=== PATIENT | male | born 1950 | race Caucasian/White ===

== ENCOUNTER → 2016-11-06 | Day surgery (SDC) | payer OTHER ==
[2016-10-21 08:55] VITALS: BMI 28.0
[~2016-11-06] VITALS: Ht 182.9 cm; Wt 93.2 kg
[~2016-11-06] MED LIST: ASPCH81X PO; CHOL1000 PO; GLC500 PO; LIDOCAINE HCL 2% 2 ML VIAL (20MG/ML) ONE; PANT40TA PO; PROPOFOL IV EMULSION 10 MG/ML 20 ML VIAL IV ONE; SAW160CA5 PO; SILD50TA PO; SIMV80TA2 PO; SODIUM CHLORIDE 0.9% 500ML 500 ML IV ONE
[2016-11-06 11:37] VITALS: TEMP 36.5
[2016-11-06 11:45] VITALS: Ht 182.9 cm; Wt 93.2 kg
--- NOTE | 2016-11-06 12:09 | Endo History and Physical ---
History & Physical Date of Service: Nov 06, 2016. Chief Complaint: PERSONAL HX COLON CANCER Referring Physician: DR JACOBSON History of Present Illness 66 yo CM who presents for colonoscopy secondary to history of colon cancer. Past Surgical History Hx Cardiac Surgery: No Hx Internal Defibrillator: No Hx Pacemaker: No Hx Abdominal Surgery: Yes Hx of Implantable Prosthesis: No Hx Post-Op Nausea and Vomiting: No Hx Cancer Surgery: Yes (COLON RESECTION, MOHS ON HEAD) Hx Thoracic Surgery: No Hx Orthopedic: Yes (TRIGGER FINGER RELEASE (MULT)) Hx Urinary Tract Surgery: No Family History None Social History Smoking Status: Former Smoker Hx Substance Use: No Hx Alcohol Use: Yes (RARELY) Allergies Coded Allergies: No Known Allergies (Verified , `, 10/21/16) Current Medications Reported Home Medications Medications Dose Route/Sig Max Daily Dose Days Date Category Viagra (Sildenafil Citrate) 50 Mg Tab 1 Tab PO UD 11/06/16 Reported Aspirin Chewable (Aspirin) 81 Mg Chew 81 Mg PO QAM 10/21/16 Reported Vitamin D3 (Cholecalciferol) 1,000 Unit Tab 1 Tab PO BID 90 10/21/16 Reported Saw [place] (Saw [place] ([place]ren[place] Repens)) 160 Mg Cap 1 Tab PO BID 04/17/16 Reported Glucophage * (Metformin HCl) 1,000 Mg Tab 1,000 Mg PO BIDM 10/12/10 Reported Protonix (Pantoprazole Sodium) 40 Mg Tab 40 Mg PO Q2D 09/06/08 Reported Zocor (Simvastatin) 80 Mg Tab 80 Mg PO QPM 09/06/08 Reported Vital Signs Weight (Kilograms): 93.18 Height (Feet): 6 Height (Inches): 0 Date Time Temp Pulse Resp B/P Pulse Ox O2 Delivery O2 Flow Rate FiO2 11/06/16 11:37 36.5 62 16 177/88 99 Room Air Physical Exam General Appearance: WD/WN, no apparent distress Respiratory/Chest: Auscultation: breath sounds normal Cardiovascular: Heart Auscultation: RRR Abdomen: Bowel Sounds: normal Inspection & Palpation: soft, non-distended, no tenderness, guarding & rebound Assessment and Plan Assessment: 66 yo CM who presents for colonoscopy secondary to history of colon cancer. Plan: Proceed with colonoscopy.
--- NOTE | 2016-11-06 12:36 | GI REPORT ---
Procedure Date: 11/06/2016 12:13 PM Procedure: Colonoscopy Indications: High risk colon cancer surveillance: Personal history of colon cancer Medicines: Monitored Anesthesia Care Complications: No immediate complications. Estimated Blood Loss: Estimated blood loss: none. Procedure: Pre-Anesthesia Assessment: - Prior to the procedure, a History and Physical was performed, and patient medications and allergies were reviewed. The patient's tolerance of previous anesthesia was also reviewed. The risks and benefits of the procedure and the sedation options and risks were discussed with the patient. All questions were answered, and informed consent was obtained. Prior Anticoagulants: The patient has taken aspirin, last dose was 9 days prior to procedure. ASA Grade Assessment: II - A patient with mild systemic disease. After reviewing the risks and benefits, the patient was deemed in satisfactory condition to undergo the procedure. After I obtained informed consent, the scope was passed under direct vision. Throughout the procedure, the patient's blood pressure, pulse, and oxygen saturations were monitored continuously. The Scope was introduced through the anus and advanced to the terminal ileum. The colonoscopy was performed without difficulty. The patient tolerated the procedure well. The quality of the bowel preparation was good. The terminal ileum, ileocecal valve, appendiceal orifice, and rectum were photographed. Findings: Three sessile polyps were found in the ascending colon. The polyps were 5 to 8 mm in size. These polyps were removed with a hot snare. Resection and retrieval were complete. There was evidence of a prior end-to-side colo-colonic anastomosis in the descending colon. This was patent and was characterized by healthy appearing mucosa. Non-bleeding internal hemorrhoids were found during retroflexion. The hemorrhoids were small. Impression: - Three 5 to 8 mm polyps in the ascending colon, removed with a hot snare. Resected and retrieved. - Patent end-to-side colo-colonic anastomosis, characterized by healthy appearing mucosa. - Non-bleeding internal hemorrhoids. Recommendation: - Resume previous diet. - Continue present medications. - Repeat colonoscopy for surveillance based on pathology results. - Return to primary care physician as previously scheduled. Sid Watts DO 11/06/2016 12:35:45 PM This report has been signed electronically. Note Initiated On: 11/06/2016 12:13 PM I attest to the content of the Intraoperative Record and orders documented therein, exceptions below
--- NOTE | 2016-11-06 12:37 | Discharge Instructions ---
Endoscopy Patient Instructions Date / Procedure(s) Performed Nov 06, 2016. Colonoscopy Allergy Information Coded Allergies: No Known Allergies (Verified , `, 10/21/16) Discharge Date / Findings Nov 06, 2016. Colon polyps Left sided anastomosis Internal hemorrhoids Medication Instructions Stopped Medication(s): ASPIRIN LAST DOSE 10/28/16 METFORMIN LAST DOSE 11/03/16 PROTONIX LAST DOSE 11/03/16 OK to resume all medications today as prescribed. Reported Home Medications Medications Dose Route/Sig Max Daily Dose Days Date Category Viagra (Sildenafil Citrate) 50 Mg Tab 1 Tab PO UD 11/06/16 Reported Aspirin Chewable (Aspirin) 81 Mg Chew 81 Mg PO QAM 10/21/16 Reported Vitamin D3 (Cholecalciferol) 1,000 Unit Tab 1 Tab PO BID 90 10/21/16 Reported Saw [place] (Saw [place] (Serenoa Repens)) 160 Mg Cap 1 Tab PO BID 04/17/16 Reported Glucophage * (Metformin HCl) 1,000 Mg Tab 1,000 Mg PO BIDM 10/12/10 Reported Protonix (Pantoprazole Sodium) 40 Mg Tab 40 Mg PO Q2D 09/06/08 Reported Zocor (Simvastatin) 80 Mg Tab 80 Mg PO QPM 09/06/08 Reported Provider Instructions Activity Restrictions - No exercising or heavy lifting for 24 hours. - Do not drink alcohol the day of the procedure. - Do not drive a car or operate machinery until the day after the procedure. - Do not make any important decisions or sign important papers in 24 hours after the procedure. Following Day: - Return to full activity which may include returning to work/school. Diet Start your diet with liquids and light foods (jello, soup, juice, toast). Then eat your usual diet if not nauseated. Treatment For Common After Affects For mild abdominal pain, bloating, or excessive gas: - Rest - Eat lightly - Lie on right side Follow-Up Information Follow-up with DR JACOBSON as scheduled Anesthesia Information What You Should Know You have had a procedure that required some medicine to reduce anxiety and discomfort. This treatment is called moderate sedation. After receiving the treatment, you may be sleepy, but you will be able to breathe on your own. The effects of the treatment may last for several hours. Follow these instructions along with Activity/Diet recommendations noted above: * Do NOT do anything where dizziness or clumsiness would be dangerous. * Rest quietly at home today, then you can be up and about tomorrow. * Have a responsible person stay with you the rest of today. * You may have had an I.V. today. If so, you may take the dressing off later today. Recommendations Call your doctor if: * Trouble breathing * Continuous vomiting for more than 24 hours * Temperature above 101 degrees * Severe abdominal pain or bloating * Pain not relieved by pain medicine ordered * There is increased drainage or redness from any incision * A large amount of rectal bleeding greater than 2-3 tablespoons. (If you had a polyp/s removed or have hemorrhoids, a small amount of blood - from the rectum is to be expected.) * You have any unanswered questions or concerns. IN THE EVENT OF A SERIOUS EMERGENCY, GO TO THE NEAREST EMERGENCY ROOM Your discharge instructions were prepared by provider Sid Watts. Patient Instructions Signature Page Demetri Hernandes Patient (or Guardian) Signature/Date: I have read and understand the instructions given to me by my caregivers. Caregiver/RN/Doctor Signature/Date: The above-named patient and/or guardian has received patient instructions on this date. + Original Patient Signature Page (only) stays with chart. Please make copy for patient.
[2016-11-06 13:01] VITALS: BP 141/74; PULSE 58; O2SAT 97
--- NOTE | 2016-11-06 13:48 | Anesthesiology Progress Note ---
Anesthesia Post Op Note Date & Time Nov 06, 2016 at 13:48 Vital Signs Pain Intensity: 0 Vital Signs Past 12 Hours Date Time Temp Pulse Resp B/P Pulse Ox O2 Delivery O2 Flow Rate FiO2 11/06/16 13:01 58 20 141/74 97 Room Air 11/06/16 12:46 71 20 142/74 95 Room Air 11/06/16 12:31 54 16 110/57 98 Room Air 11/06/16 11:37 36.5 62 16 177/88 99 Room Air Notes Mental Status: alert / awake / arousable, participated in evaluation Pt Amnestic to Procedure: Yes Nausea / Vomiting: adequately controlled Pain: adequately controlled Airway Patency, RR, SpO2: stable & adequate BP & HR: stable & adequate Hydration State: stable & adequate Anesthetic Complications: no major complications apparent
== END | disposition home or self-care (01) ==
LOC: C.GI 11:23
PROVIDERS: ATTEND Internal Medicine
DX: Z12.11 Encounter for screening for malignant neoplasm of colon (principal); D12.2 Benign neoplasm of ascending colon; Z85.038 Personal history of other malignant neoplasm of large intestine; Z98.0 Intestinal bypass and anastomosis status; Z90.49 Acquired absence of other specified parts of digestive tract; K64.8 Other hemorrhoids; Z87.891 Personal history of nicotine dependence; Z79.82 Long term (current) use of aspirin

== ENCOUNTER → 2017-01-15 | Outpatient (CLI) | payer OTHER ==
[~2017-01-15] MED LIST changes: -LIDOCAINE HCL 2% 2 ML VIAL (20MG/ML) ONE; -PROPOFOL IV EMULSION 10 MG/ML 20 ML VIAL IV ONE; -SODIUM CHLORIDE 0.9% 500ML 500 ML IV ONE
[2017-01-15 10:50] LABS: BASO % 0.3 %; BASO ABS # 0.02 K/uL (0-0.2); COMPLETE YES; EOS % 1.4 %; HEMATOCRIT 40.3 % (42-52); IG% 0.2 %; LYMPH % 18.3 %; LYMPH ABS # 1.21 K/uL (1.2-3.4); MEAN CELL VOLUME 84.3 fL (80-100); MEAN CORPUSCULAR HEMOGLOBIN 27.2 pg (25-34); MEAN CORPUSCULAR HGB CONC 32.3 g/dl (32-36); MONO % 9.1 %; NEUT % 70.7 %; PLATELET COUNT 294 K/uL (130-400); RED BLOOD COUNT 4.78 M/uL (4.7-6.1)
[2017-01-15 11:03] LABS: ALT/SGPT 35 U/L (12-78); AST/SGOT 23 U/L (15-37); BLOOD UREA NITROGEN 13 mg/dl (7-18); BUN/CREATININE RATIO 11.7 (10-20); CARBON DIOXIDE 26 mmol/L (21-32); CHLORIDE 105 mmol/L (98-107); CHOLESTEROL 149 mg/dl (0-200); GLUCOSE 116 mg/dl (70-99); POTASSIUM 3.9 mmol/L (3.5-5.1); SODIUM 139 mmol/L (136-145); TRIGLYCERIDES 89 mg/dl (0-150); VERY LOW DENSITY LIPOPROT CALC 18 mg/dl
[2017-01-15 11:09] LABS: ALKALINE PHOSPHATASE 67 U/L (45-117); CHOLESTEROL/HDL RATIO 3.2; FERRITIN 57.4 ng/ml (8.0-388.0); HDL CHOLESTEROL 47 mg/dl; LDL CHOLESTEROL CALCULATED 84 mg/dl; TOTAL IRON BINDING CAPACITY 386 mcg/dl (250-450)
[2017-01-15 11:24] LABS: ESTIMATED AVERAGE GLUCOSE 137 mg/dl; HA1C FLAG Normal (Normal)
[2017-01-15 11:31] LABS: CALCIUM 9.5 mg/dl (8.5-10.1)
[2017-01-15 11:41] LABS: RATIO 70.4 mcg/mg (0-30.0)
== END | disposition home or self-care (01) ==
LOC: C.LABBC 08:49
PROVIDERS: ATTEND Internal Medicine
DX: E11.9 Type 2 diabetes mellitus without complications (principal); D64.9 Anemia, unspecified; E78.5 Hyperlipidemia, unspecified; Z85.038 Personal history of other malignant neoplasm of large intestine

== ENCOUNTER → 2017-01-22 | Outpatient (CLI) | payer OTHER ==
[2017-01-22 12:15] LABS: URINE APPEARANCE CLEAR (CLEAR); URINE BILIRUBIN NEG (NEG); URINE COLOR YELLOW; URINE NITRITE NEG (NEG); URINE SPECIFIC GRAVITY 1.016 (1.000-1.030); UROBILINOGEN NEG (NEG)
[2017-01-22 12:19] LABS: MANUAL MICROSCOPIC REQUIRED? NO; REVIEW REQ? NO
== END | disposition home or self-care (01) ==
LOC: C.LAB1850 11:18
PROVIDERS: ATTEND Internal Medicine
DX: Z00.00 Encounter for general adult medical examination without abnormal findings (principal); Z11.59 Encounter for screening for other viral diseases; R35.0 Frequency of micturition

== ENCOUNTER → 2017-02-12 | Outpatient (CLI) | payer OTHER ==
[2017-02-12 13:58] LABS: URINE APPEARANCE CLEAR (CLEAR); URINE BILIRUBIN NEG (NEG); URINE COLOR DK YELLOW; URINE EPITHELIAL CELL AUTO 0-5 /lpf (0-5); URINE NITRITE POS (NEG); URINE PH 6.5 (4.5-7.5); URINE SPECIFIC GRAVITY 1.026 (1.000-1.030); UROBILINOGEN POS (NEG)
[2017-02-12 14:05] LABS: MANUAL MICROSCOPIC REQUIRED? NO; REVIEW REQ? NO
== END | disposition home or self-care (01) ==
LOC: C.LABBC 11:41
PROVIDERS: ATTEND Internal Medicine
DX: R35.0 Frequency of micturition (principal)

== ENCOUNTER → 2017-03-05 | Outpatient (CLI) | payer OTHER ==
[2017-03-05 15:02] LABS: URINE APPEARANCE TURBID (CLEAR); URINE BILIRUBIN NEG (NEG); URINE COLOR DK YELLOW; URINE NITRITE NEG (NEG); URINE SPECIFIC GRAVITY 1.026 (1.000-1.030); UROBILINOGEN NEG (NEG)
[2017-03-05 15:06] LABS: MANUAL MICROSCOPIC REQUIRED? NO; REVIEW REQ? NO
== END | disposition home or self-care (01) ==
LOC: C.LABBC 09:58
PROVIDERS: ATTEND Internal Medicine
DX: R35.0 Frequency of micturition (principal)

== ENCOUNTER → 2017-05-22 | Outpatient (CLI) | payer OTHER ==
[2017-05-22 10:50] LABS: BASO % 0.7 %; BASO ABS # 0.04 K/uL (0-0.2); COMPLETE YES; EOS % 1.8 %; HEMATOCRIT 40.4 % (42-52); LYMPH % 25.6 %; LYMPH ABS # 1.43 K/uL (1.2-3.4); MEAN CELL VOLUME 83.6 fL (80-100); MEAN CORPUSCULAR HEMOGLOBIN 28.2 pg (25-34); MEAN CORPUSCULAR HGB CONC 33.7 g/dl (32-36); MEAN PLATELET VOLUME 10.2 fL (7.4-10.4); MONO % 7.2 %; NEUT % 64.7 %; PLATELET COUNT 256 K/uL (130-400); RED BLOOD COUNT 4.83 M/uL (4.7-6.1); WHITE BLOOD COUNT 5.58 K/uL (4.8-10.8)
[2017-05-22 11:11] LABS: ESTIMATED AVERAGE GLUCOSE 131 mg/dl; HA1C FLAG Normal (Normal)
[2017-05-22 11:22] LABS: BLOOD UREA NITROGEN 12 mg/dl (7-18); CALCIUM 9.4 mg/dl (8.5-10.1); CARBON DIOXIDE 26 mmol/L (21-32); CHLORIDE 107 mmol/L (98-107); GLUCOSE 97 mg/dl (70-99); SODIUM 140 mmol/L (136-145)
[2017-05-22 11:27] LABS: RATIO 4.1 mcg/mg (0-30.0)
[2017-05-22 11:27] LABS: TOTAL IRON BINDING CAPACITY 478 mcg/dl (250-450)
== END | disposition home or self-care (01) ==
LOC: C.LABBC 08:45
PROVIDERS: ATTEND Internal Medicine
DX: E11.9 Type 2 diabetes mellitus without complications (principal); D64.9 Anemia, unspecified

== ENCOUNTER → 2017-07-23 | Outpatient (CLI) | payer OTHER ==
[2017-07-23 10:54] LABS: BASO % 0.4 %; BASO ABS # 0.03 K/uL (0-0.2); COMPLETE YES; EOS % 1.2 %; HEMATOCRIT 41.3 % (42-52); LYMPH % 20.8 %; LYMPH ABS # 1.39 K/uL (1.2-3.4); MEAN CELL VOLUME 86.4 fL (80-100); MEAN CORPUSCULAR HEMOGLOBIN 28.5 pg (25-34); MEAN CORPUSCULAR HGB CONC 32.9 g/dl (32-36); MEAN PLATELET VOLUME 10.2 fL (7.4-10.4); MONO % 6.7 %; NEUT % 70.9 %; PLATELET COUNT 230 K/uL (130-400); RED BLOOD COUNT 4.78 M/uL (4.7-6.1); WHITE BLOOD COUNT 6.69 K/uL (4.8-10.8)
[2017-07-23 11:27] LABS: BLOOD UREA NITROGEN 15 mg/dl (7-18); BUN/CREATININE RATIO 13.8 (10-20); CALCIUM 9.2 mg/dl (8.5-10.1); CARBON DIOXIDE 28 mmol/L (21-32); CHLORIDE 105 mmol/L (98-107); CREATININE 1.09 mg/dl (0.60-1.40); GLUCOSE 94 mg/dl (70-99); SODIUM 138 mmol/L (136-145)
[2017-07-23 11:32] LABS: FERRITIN 12.6 ng/ml (8.0-388.0); TOTAL IRON BINDING CAPACITY 421 mcg/dl (250-450)
== END | disposition home or self-care (01) ==
LOC: C.LABBC 08:53
PROVIDERS: ATTEND Internal Medicine
DX: D64.9 Anemia, unspecified (principal); I10 Essential (primary) hypertension; N40.0 Benign prostatic hyperplasia without lower urinary tract symptoms

== ENCOUNTER → 2018-01-15 | Outpatient (CLI) | payer OTHER ==
[2018-01-15 11:26] LABS: ALT/SGPT 22 U/L (12-78); AST/SGOT 15 U/L (15-37); BLOOD UREA NITROGEN 16 mg/dl (7-18); CALCIUM 9.2 mg/dl (8.5-10.1); CARBON DIOXIDE 28 mmol/L (21-32); CHOLESTEROL 136 mg/dl (0-200); CREATININE 1.19 mg/dl (0.60-1.40); GLUCOSE 103 mg/dl (70-99); LDL CHOLESTEROL CALCULATED 66 mg/dl; POTASSIUM 4.2 mmol/L (3.5-5.1); SODIUM 140 mmol/L (136-145)
[2018-01-15 12:15] LABS: HEMOGLOBIN A1C 5.9 % (4.5-5.6)
== END | disposition home or self-care (01) ==
LOC: C.LABBC 08:46
PROVIDERS: ATTEND Internal Medicine
DX: E11.9 Type 2 diabetes mellitus without complications (principal); E78.5 Hyperlipidemia, unspecified; R97.20 Elevated prostate specific antigen [PSA]; I10 Essential (primary) hypertension; E55.9 Vitamin D deficiency, unspecified

== ENCOUNTER 2018-12-03 15:44 | Inpatient (IN) ==
[2018-12-03] MEDS ORDERED: ATROPINE SULFATE 0.1 MG/ML 10ML SYR IV ONE (16:06)
[2018-12-03] MEDS ORDERED: ATROPINE SULFATE 0.1 MG/ML 10ML SYR IV STA (16:08)
[2018-12-03] MEDS ORDERED: SODIUM CHLORIDE 0.9% 500 ML IV SCH (16:15)
[2018-12-03 16:17] LABS: Basophils # (auto) 0.03 K/uL (0-0.2); Basophils % (auto) 0.5 %; Eosinophils # (auto) 0.09 K/uL (0-0.5); Eosinophils % (auto) 1.4 %; Hematocrit (blood only) 39.8 % (42-52); Hemoglobin 13.3 g/dL (14.0-18.0); Immature Granulocytes # (auto) 0.02 K/uL (0.00-0.02); Immature Granulocytes % (auto) 0.3 %; Lymphocytes # (auto) 1.27 K/uL (1.2-3.4); Lymphocytes % (auto) 20.2 %; Mean Corpuscular Hgb Conc 33.4 g/dL (32-36); Mean Corpuscular Volume 90.5 fL (80-100); Mean Platelet Volume 10.8 fL (7.4-10.4); Monocytes # (auto) 0.53 K/uL (0.11-0.59); Monocytes % (auto) 8.4 %; Neutrophils # (auto) 4.35 K/uL (1.4-6.5); Neutrophils % (auto) 69.2 %; Platelet Count 208 K/uL (130-400); RDW Coefficient of Variation 13.3 % (11.5-14.5); RDW Standard Deviation 43.7 fL (36.4-46.3); White Blood Count 6.29 K/uL (4.8-10.8)
[2018-12-03 16:19] LABS: iSTAT Creatinine 1.4 mg/dl (0.6-1.3); iSTAT Hemoglobin 12.9 g/dl (14.0-18.0); iSTAT Ionized Calcium 1.16 mmol/l (1.12-1.32); iSTAT Potassium 4.3 mEq/L (3.3-5.0)
--- NOTE | 2018-12-03 16:20 | XRay Report ---
XR chest 1V portable CLINICAL HISTORY: Dyspnea COMPARISON STUDY: 11/08/2010 FINDINGS: The heart is mildly enlarged. There is radiographic evidence of emphysema. There is slight elevation of the interstitium raising the possibility of mild pulmonary vascular congestion.[ There i s no focal pulmonary consolidation. There are no pleural effusions. IMPRESSION: Cardiomegaly and suspected mild pulmonary vascular congestion. No evidence of focal pulmo nary consolidation. Electronically signed by: Quintin Lawrence M.D. 12/03/2018 4:18 PM
[2018-12-03 16:28] LABS: Partial Thromboplastin Ratio 0.9; Partial Thromboplastin Time 24.7 Seconds (21.0-31.0); Prothrombin Time 10.5 Seconds (9.0-12.0)
[2018-12-03 16:34] LABS: Alanine Aminotransferase 31 U/L (12-78); Albumin Level 3.8 gm/dl (3.4-5.0); Aspartate Aminotransferase 16 U/L (15-37); BUN Creatinine Ratio 12.3 (10-20); Blood Urea Nitrogen 18 mg/dl (7-18); Carbon Dioxide 26 mmol/L (21-32); Chloride 111 mmol/L (98-107); Creatinine Clr Calc Pharmacy 59.6 ml/min; Est GFR (African American) 55.7; Glucose 100 mg/dl (70-99); Magnesium 2.3 mg/dl (1.8-2.4); Potassium 4.3 mmol/L (3.5-5.1); Sodium 142 mmol/L (136-145)
[2018-12-03 16:38] LABS: Albumin Globulin Ratio 1.3 (0.9-2); Alkaline Phosphatase 54 U/L (45-117); Globulin 2.8 gm/dl (2.5-4.0); Phosphorus 3.4 mg/dl (2.5-4.9); Total Protein 6.6 gm/dl (6.4-8.2); Troponin I < 0.015 ng/ml (0-0.045)
[2018-12-03 16:58] LABS: Base Excess VBG 0.3 mEq/L; HCO3 VBG 24 mmol/L; Oxygen Saturation VBG < 60.0 %; PCO2 VBG 37 mmHg (38-50); PO2 VBG 28 mmHg; pH VBG 7.44 (7.36-7.41)
[2018-12-03] MEDS ORDERED: MAGNESIUM SULFATE / D5W 1 GM/100 ML BAG IV SCH (17:00)
[2018-12-03 17:34] LABS: Lyme Ab IgG w/WB Rflx Negative (Negative); Lyme Ab IgM w/WB Rflx Negative (Negative)
[2018-12-03] MEDS ORDERED: ALUMINUM/MAGNESIUM SUSP 30 ML UDC PO PRN (17:42)
[2018-12-03] MEDS ORDERED: ONDANSETRON INJ 2 MG/ML 2 ML VIAL IV PRN (17:42)
--- NOTE | 2018-12-03 17:54 | History & Physical Report ---
Date of Service December 03, 2018 Assessment & Plan (1) Symptomatic bradycardia: Patient appears to have a [place] 2 were irregular heartbeat is not conducted P wave. The patient is asymptomatic at rest at this time preserving his blood pressure. His heart rates in the 30s. He is had a very negative emergency department workup. I spoke to cardiology her considering pacemaker placement. Interesting bit of information is his takes a beta-karime they feel fairly confident that did not mix of the medications but this is also a possibility but this would likely remedy itself by the morning. Keep the pacer pads on and use saline overnight to preserve his blood pressure. TSH and Lyme are negative or normal, all electrolytes are within normal limits (2) HTN (hypertension): We will hold the patient's losartan at this point in time (3) Erectile dysfunction: Patient does take as needed sildenafil with does not taken any recently History of Present Illness Primary Care Provider: Manuel Menjivar MD Patient presents with few days a week history of dyspnea on exertion. His also notes is been increasingly having memory issues over the last few weeks. He is found to be in what appears to be a second-degree heart block type II or every other heartbeat is nonconducted P wave. Patient otherwise has a very benign examination and laboratory evaluation including negative Lyme disease normal TSH negative troponin. He carries a diagnosis of diabetes. He takes metformin and his A1c is 5.9. He has no significant electrolyte abnormalities. Patient did transiently respond to atropine in the ER but currently his heart rates around 30-40 and his blood pressure is stable I personally spoke to Dr. Delgado education faculty member cardiology and there is a strong consideration for pacemaker placement in the morning of 12/04 Allergies Allergy/AdvReac Type Severity Reaction Status Date / Time No Known Allergies Allergy Unknown ` Verified 12/03/18 16:13 Home Medications Home Medications Medication Instructions Recorded Confirmed Type aspirin 81 mg PO DAILY 12/03/18 12/03/18 History cholecalciferol (vitamin D3) 1,000 unit PO DAILY 12/03/18 12/03/18 History [Vitamin D3] cyanocobalamin (vitamin B-12) 1 tab PO DAILY 12/03/18 12/03/18 History [Vitamin B-12] ferrous sulfate [iron] 1 tab PO DAILY 12/03/18 12/03/18 History losartan 50 mg PO DAILY 12/03/18 12/03/18 History metformin 1,000 mg PO BID 12/03/18 12/03/18 History saw [place] 1 tab PO DAILY 12/03/18 12/03/18 History simvastatin 80 mg PO DAILY 12/03/18 12/03/18 History Past Med/Surg History Medical History Colon cancer (Resolved) Heart murmur Surgical History History of partial colectomy Social History Preferred Language: Portuguese marital status: Current Living Situation: Spouse Feels Safe at Home: Yes Smoking Status: Never smoker Hx Alcohol Use: No Review of Systems ROS: well nourished well developed. No double vision blurry vision No problems with speech or swallowing Patient may be able to feel some strong heartbeats or palpitations, but denies having any chest pain or pressure No Wheezing relates dyspnea on exertion No abdominal pain nausea vomiting diarrhea has had a reduced appetite and increased weight gain No burning urine urine frequency or changes in color No focal joint pain or muscle pain No skin rashes or oral lesions No unusual bruising or bleeding No focused back pain or numbness or loss of strength states he has had more challenges with memory of late Physical Exam Vital Signs (Past 24 Hours): Last Vital Signs Temp 36.7 C 12/03/18 15:49 Pulse 41 L 12/03/18 16:30 Resp 17 12/03/18 16:30 BP 187/71 H 12/03/18 16:16 Pulse Ox 93 12/03/18 16:30 The patient appeared well nourished and normally developed. Vital signs as documented. Extremely low heart rate but preserved blood pressure Head exam is unremarkable. normocephalic, atraumatic Neck is without jugular venous distension, thyromegaly, or lymphademopathy Lungs are clear to auscultation and percussion. Cardiac exam reveals extreme bradycardia first and second heart sounds normal. Abdominal exam reveals normal bowel sounds, no masses, no organomegaly Extremities are mildly edematous and both pedal pulses are present Neurologic exam is A&Ox3, no focal deficits, strength is equal bilateral Psychologically seems neither anxious or depressed Skin is warm Dry without bruises or lesions Results & Data ECG Additional Comments: EKG shows sinus bradycardia likely Mobitz 2 heart block
[2018-12-03] MEDS: SODIUM CHLORIDE 0.9% 1000ML 1,000 ML IV SCH (19:33)
--- NOTE | 2018-12-04 00:51 | Emergency Department Note ---
Entered by Sarah Clayton acting as a scribe for History of Present Illness General Chief complaint: Arrhythmia/Palpitations Stated complaint: IRREGULAR HEARTBEAT Time Seen by Provider: 12/03/18 16:01 Source: patient Mode of arrival: ambulatory Limitations: no limitations History of Present Illness Provider complaint: shortness of breath Onset (ago): week(s) (several) Location: chest Pain Consistency: + other (worsening) Maximum Pain Intensity: 0 Quality: + other (YUEN) Relieved By: + rest Exacerbated By: + other (walking) Associated symptoms: + denies other symptoms (urinary, abn BM, leg swelling); no chest pain The patient is a 68 year old male with a past medical history of HLD, diabetes and colon cancer who presents to the Emergency Room with complaints of a worsening shortness of breath that began several weeks ago. The patent reports that his symptoms are worsened when walking but relieved with rest. He denies any leg swelling, chest pain or urinary symptoms and notes he has had normal bowel movements. He also denies any recent surgeries or any alcohol or tobacco use. He notes that he has had a 15 pound weight gain over the last 6 months. He denies any allergies to medications. He also reports that he was evaluated by his PCP earlier today and referred to the ER secondary to a low pulse and abnormal EKG results. He denies any cardiac history. Per , the patient is on a daily low-dose aspirin. Home Medications Home Medications Medication Instructions Recorded Confirmed Type aspirin 81 mg PO DAILY 12/03/18 12/03/18 History cholecalciferol (vitamin D3) 1,000 unit PO DAILY 12/03/18 12/03/18 History [Vitamin D3] cyanocobalamin (vitamin B-12) 1 tab PO DAILY 12/03/18 12/03/18 History [Vitamin B-12] ferrous sulfate [iron] 1 tab PO DAILY 12/03/18 12/03/18 History losartan 50 mg PO DAILY 12/03/18 12/03/18 History metformin 1,000 mg PO BID 12/03/18 12/03/18 History saw palmetto 1 tab PO DAILY 12/03/18 12/03/18 History simvastatin 80 mg PO DAILY 12/03/18 12/03/18 History Allergies Allergy/AdvReac Type Severity Reaction Status Date / Time No Known Allergies Allergy Unknown ` Verified 12/03/18 16:13 Past Med/Surg History Medical History Colon cancer (Resolved) Heart murmur Surgical History History of partial colectomy Social History Preferred Language: [place] Communication Ability: Effective Art Installer Required: No Beliefs That Will Affect Care: None marital status: Current Living Situation: Spouse Other Information That Helps Us Care for You: No Feels Safe at Home: Yes Safety Concerns: Feels Safe At This Time Smoking Status: Unknown if ever smoked Hx Alcohol Use: No Review of Systems See HPI for pertinent positives & negatives. and A total of 10 systems reviewed and were otherwise negative Physical Exam Vital Signs Vital Signs - 24 hr 12/03/18 15:49 12/03/18 16:00 12/03/18 16:02 Temperature 36.7 C Temperature Source Oral Sepsis Recent Fever Within 48 Hours No Sepsis New/Unexplained Change in Mental Status No Sepsis Action Taken by Nursing No Action Required Pulse Rate 37 L 37 L Pulse Rate [Left Brachial] Pulse Rate [Left Finger] Pulse Rate from SpO2 Sensor Pulse Rhythm [Left Brachial] Pulse Strength [Left Brachial] Respiratory Rate 17 15 Respiratory Effort / Characteristics Respiratory Depth Respiratory Pattern Blood Pressure 194/73 H Blood Pressure [Right Arm] Blood Pressure Mean 113 Blood Pressure Mean [Right Arm] Blood Pressure Position Lying Blood Pressure Position [Right Arm] Pulse Oximetry 97 95 Oxygen Delivery Method Room Air 12/03/18 16:03 12/03/18 16:05 12/03/18 16:10 Temperature Temperature Source Sepsis Recent Fever Within 48 Hours Sepsis New/Unexplained Change in Mental Status Sepsis Action Taken by Nursing Pulse Rate 38 L 53 L Pulse Rate [Left Brachial] Pulse Rate [Left Finger] Pulse Rate from SpO2 Sensor 38 L 63 Pulse Rhythm [Left Brachial] Pulse Strength [Left Brachial] Respiratory Rate 17 19 Respiratory Effort / Characteristics Respiratory Depth Normal Respiratory Pattern Blood Pressure 179/69 H Blood Pressure [Right Arm] Blood Pressure Mean 105 Blood Pressure Mean [Right Arm] Blood Pressure Position Blood Pressure Position [Right Arm] Pulse Oximetry 95 97 95 Oxygen Delivery Method Room Air 12/03/18 16:16 12/03/18 16:20 12/03/18 16:30 Temperature Temperature Source Sepsis Recent Fever Within 48 Hours Sepsis New/Unexplained Change in Mental Status Sepsis Action Taken by Nursing Pulse Rate 41 L 41 L 41 L Pulse Rate [Left Brachial] Pulse Rate [Left Finger] Pulse Rate from SpO2 Sensor 41 L 42 L 42 L Pulse Rhythm [Left Brachial] Pulse Strength [Left Brachial] Respiratory Rate 15 20 17 Respiratory Effort / Characteristics Respiratory Depth Respiratory Pattern Blood Pressure 187/71 H Blood Pressure [Right Arm] Blood Pressure Mean 109 Blood Pressure Mean [Right Arm] Blood Pressure Position Blood Pressure Position [Right Arm] Pulse Oximetry 95 97 93 Oxygen Delivery Method 12/03/18 16:34 12/03/18 16:40 12/03/18 16:45 Temperature Temperature Source Sepsis Recent Fever Within 48 Hours Sepsis New/Unexplained Change in Mental Status Sepsis Action Taken by Nursing Pulse Rate 41 L 38 L 43 L Pulse Rate [Left Brachial] Pulse Rate [Left Finger] Pulse Rate from SpO2 Sensor 44 L 39 L 38 L Pulse Rhythm [Left Brachial] Pulse Strength [Left Brachial] Respiratory Rate 19 18 18 Respiratory Effort / Characteristics Respiratory Depth Respiratory Pattern Blood Pressure 157/67 H 151/69 H Blood Pressure [Right Arm] Blood Pressure Mean 97 96 Blood Pressure Mean [Right Arm] Blood Pressure Position Blood Pressure Position [Right Arm] Pulse Oximetry 95 95 Oxygen Delivery Method 12/03/18 16:50 12/03/18 17:00 12/03/18 17:01 Temperature Temperature Source Sepsis Recent Fever Within 48 Hours Sepsis New/Unexplained Change in Mental Status Sepsis Action Taken by Nursing Pulse Rate 41 L 36 L 36 L Pulse Rate [Left Brachial] Pulse Rate [Left Finger] Pulse Rate from SpO2 Sensor 39 L 36 L 39 L Pulse Rhythm [Left Brachial] Pulse Strength [Left Brachial] Respiratory Rate 21 21 21 Respiratory Effort / Characteristics Respiratory Depth Respiratory Pattern Blood Pressure 161/72 H Blood Pressure [Right Arm] Blood Pressure Mean 101 Blood Pressure Mean [Right Arm] Blood Pressure Position Blood Pressure Position [Right Arm] Pulse Oximetry 95 94 90 Oxygen Delivery Method 12/03/18 17:10 12/03/18 17:16 12/03/18 17:20 Temperature Temperature Source Sepsis Recent Fever Within 48 Hours Sepsis New/Unexplained Change in Mental Status Sepsis Action Taken by Nursing Pulse Rate 38 L 36 L 38 L Pulse Rate [Left Brachial] Pulse Rate [Left Finger] Pulse Rate from SpO2 Sensor 38 L 36 L 36 L Pulse Rhythm [Left Brachial] Pulse Strength [Left Brachial] Respiratory Rate 21 19 15 Respiratory Effort / Characteristics Respiratory Depth Respiratory Pattern Blood Pressure 157/71 H Blood Pressure [Right Arm] Blood Pressure Mean 99 Blood Pressure Mean [Right Arm] Blood Pressure Position Blood Pressure Position [Right Arm] Pulse Oximetry 96 96 97 Oxygen Delivery Method 12/03/18 17:30 12/03/18 17:31 12/03/18 17:40 Temperature Temperature Source Sepsis Recent Fever Within 48 Hours Sepsis New/Unexplained Change in Mental Status Sepsis Action Taken by Nursing Pulse Rate 37 L 37 L Pulse Rate [Left Brachial] Pulse Rate [Left Finger] Pulse Rate from SpO2 Sensor 37 L 37 L 36 L Pulse Rhythm [Left Brachial] Pulse Strength [Left Brachial] Respiratory Rate 17 20 20 Respiratory Effort / Characteristics Respiratory Depth Respiratory Pattern Blood Pressure 174/70 H Blood Pressure [Right Arm] Blood Pressure Mean 104 Blood Pressure Mean [Right Arm] Blood Pressure Position Blood Pressure Position [Right Arm] Pulse Oximetry 93 Oxygen Delivery Method 12/03/18 17:46 12/03/18 17:50 12/03/18 18:00 Temperature Temperature Source Sepsis Recent Fever Within 48 Hours Sepsis New/Unexplained Change in Mental Status Sepsis Action Taken by Nursing Pulse Rate 36 L 39 L 34 L Pulse Rate [Left Brachial] Pulse Rate [Left Finger] Pulse Rate from SpO2 Sensor 36 L 37 L Pulse Rhythm [Left Brachial] Pulse Strength [Left Brachial] Respiratory Rate 18 16 21 Respiratory Effort / Characteristics Respiratory Depth Respiratory Pattern Blood Pressure 181/73 H Blood Pressure [Right Arm] Blood Pressure Mean 109 Blood Pressure Mean [Right Arm] Blood Pressure Position Blood Pressure Position [Right Arm] Pulse Oximetry 98 71 L Oxygen Delivery Method 12/03/18 18:01 12/03/18 18:10 12/03/18 18:16 Temperature Temperature Source Sepsis Recent Fever Within 48 Hours Sepsis New/Unexplained Change in Mental Status Sepsis Action Taken by Nursing Pulse Rate 34 L 39 L 35 L Pulse Rate [Left Brachial] Pulse Rate [Left Finger] Pulse Rate from SpO2 Sensor 35 L 34 L Pulse Rhythm [Left Brachial] Pulse Strength [Left Brachial] Respiratory Rate 14 15 22 Respiratory Effort / Characteristics Respiratory Depth Respiratory Pattern Blood Pressure 169/87 H 177/69 H Blood Pressure [Right Arm] Blood Pressure Mean 114 105 Blood Pressure Mean [Right Arm] Blood Pressure Position Blood Pressure Position [Right Arm] Pulse Oximetry 94 95 Oxygen Delivery Method 12/03/18 18:20 12/03/18 18:30 12/03/18 18:32 Temperature Temperature Source Sepsis Recent Fever Within 48 Hours Sepsis New/Unexplained Change in Mental Status Sepsis Action Taken by Nursing Pulse Rate 37 L Pulse Rate [Left Brachial] Pulse Rate [Left Finger] Pulse Rate from SpO2 Sensor 35 L 34 L 34 L Pulse Rhythm [Left Brachial] Pulse Strength [Left Brachial] Respiratory Rate 27 H 20 21 Respiratory Effort / Characteristics Respiratory Depth Respiratory Pattern Blood Pressure 178/77 H Blood Pressure [Right Arm] Blood Pressure Mean 110 Blood Pressure Mean [Right Arm] Blood Pressure Position Blood Pressure Position [Right Arm] Pulse Oximetry 96 96 95 Oxygen Delivery Method 12/03/18 18:40 12/03/18 19:00 12/03/18 20:00 Temperature 36.6 C Temperature Source Oral Sepsis Recent Fever Within 48 Hours Sepsis New/Unexplained Change in Mental Status Sepsis Action Taken by Nursing Pulse Rate 37 L Pulse Rate [Left Brachial] 40 L Pulse Rate [Left Finger] Pulse Rate from SpO2 Sensor 36 L Pulse Rhythm [Left Brachial] Regular Pulse Strength [Left Brachial] Normal Respiratory Rate 22 20 Respiratory Effort / Characteristics Non-Labored Respiratory Depth Normal Respiratory Pattern Regular Blood Pressure Blood Pressure [Right Arm] 161/63 H Blood Pressure Mean Blood Pressure Mean [Right Arm] 95 Blood Pressure Position Blood Pressure Position [Right Arm] Sitting Pulse Oximetry 97 98 Oxygen Delivery Method Room Air 12/03/18 21:45 12/03/18 23:21 Temperature 36.7 C Temperature Source Oral Sepsis Recent Fever Within 48 Hours Sepsis New/Unexplained Change in Mental Status Sepsis Action Taken by Nursing Pulse Rate Pulse Rate [Left Brachial] 38 L Pulse Rate [Left Finger] 41 L Pulse Rate from SpO2 Sensor Pulse Rhythm [Left Brachial] Regular Pulse Strength [Left Brachial] Normal Respiratory Rate 22 Respiratory Effort / Characteristics Respiratory Depth Normal Respiratory Pattern Blood Pressure Blood Pressure [Right Arm] 166/68 H 170/69 H Blood Pressure Mean Blood Pressure Mean [Right Arm] 100 102 Blood Pressure Position Blood Pressure Position [Right Arm] Lying Lying Pulse Oximetry 95 90 Oxygen Delivery Method Room Air Room Air GENERAL: Well appearing, well nourished, mild distress, non-toxic. EYE EXAM: Normal conjunctiva. PERRL, no anisocoria and EOM's grossly intact w/o pain. OROPHARYNX: Moist MM. NECK: Supple, no nuchal rigidity, no adenopathy, non-tender. No signs of meningismus. LUNGS: Clear to auscultation. Normal chest wall mechanics. HEART: Bradycardic, no MRG. ABDOMEN: Abdomen soft, non-tender, normo-active bowel sounds, no masses, no rebound or guarding. BACK: No CVA TTP. SKIN: No rashes and no bruising. UPPER EXTREMITIES: Upper extremities are grossly normal. LOWER EXTREMITIES: No pitting edema. No calf pain. Negative Homans sign. NEURO EXAM: A and O x3. GCS 15. Moves all 4 extremities on command w/o issue. Course 1604: Past medical records reviewed. The patient was evaluated in room B1, and a complete history and physical examination were performed. 1649: I reviewed the patient's case with Dr. Delgado - Cardiology. He recommends admission of the patient for NPO as well as a pacemaker. 170: I reviewed the patient's case with Dr. Jacome - [facility] Hospitalist. He will evaluate the patient for further management. Administered Medications Sodium Chloride (Nss 1000ml) 1,000 mls @ 80 mls/hr IV .[id number] [facility] Stop: 01/02/19 17:44 Last Admin: 12/03/18 19:33 Dose: 80 mls/hr Documented by: [id number] Discontinued Medications Atropine Sulfate (Atropine Sulfate) Confirm Administered Dose 1 mg IV .[facility] Stop: 12/03/18 16:07 Last Admin: 12/03/18 16:32 Dose: Not Given Documented by: [id number] Atropine Sulfate (Atropine Sulfate) 1 mg IV NOW STA Stop: 12/03/18 16:09 Last Admin: 12/03/18 16:08 Dose: 1 mg Documented by: [id number] Sodium Chloride (Nss) 500 mls @ 999 mls/hr IV .Q31M [facility] Stop: 12/03/18 16:45 Last Infusion: 12/03/18 17:27 Dose: 0 mls/hr Documented by: [id number] Admin: 12/03/18 16:32 Dose: 999 mls/hr Documented by: [id number] Magnesium Sulfate/Dextrose (Magnesium Sulfate / D5w) 1 gm in 100 mls @ 100 mls/hr IV Q1H [facility] Stop: 12/03/18 18:59 Last Admin: 12/03/18 17:26 Dose: Not Given Documented by: [id number] Medical Decision Making Medical Records Attestation: I reviewed the patient's medical records. Home Medications Current Medication List: was personally reviewed by me Laboratory Data Attestation: I reviewed the patient's lab results. Result diagrams: 12/03/18 16:01 12/03/18 16:01 Lab Results 12/03/18 12/03/18 12/03/18 Range/Units 16:01 16:01 16:01 WBC 6.29 (4.8-10.8) K/uL RBC 4.40 L (4.7-6.1) M/uL Hgb 13.3 L (14.0-18.0) g/dL POC Hgb (14.0-18.0) g/dl Hct 39.8 L (42-52) % POC Hct (42-52) % MCV 90.5 (80-100) fL MCH 30.2 (25-34) pg MCHC 33.4 (32-36) g/dL RDW Std Deviation 43.7 (36.4-46.3) fL RDW Coeff of David 13.3 (11.5-14.5) % Plt Count 208 (130-400) K/uL MPV 10.8 H (7.4-10.4) fL Immature Gran % (Auto) 0.3 % Neut % (Auto) 69.2 % Lymph % (Auto) 20.2 % Bennett % (Auto) 8.4 % Eos % (Auto) 1.4 % Baso % (Auto) 0.5 % Immature Gran # (Auto) 0.02 (0.00-0.02) K/uL Neut # (Auto) 4.35 (1.4-6.5) K/uL Lymph # (Auto) 1.27 (1.2-3.4) K/uL Bennett # (Auto) 0.53 (0.11-0.59) K/uL Eos # (Auto) 0.09 (0-0.5) K/uL Baso # (Auto) 0.03 (0-0.2) K/uL PT 10.5 (9.0-12.0) Seconds INR 1.0 (0.9-1.1) APTT 24.7 (21.0-31.0) Seconds PTT Ratio 0.9 VBG pH (7.36-7.41) VBG pCO2 (38-50) mmHg VBG pO2 mmHg VBG HCO3 mmol/L VBG O2 Saturation % VBG Base Excess mEq/L Barometric Pressure mm/Hg POC Sodium (135-144) mEq/L Sodium 142 (136-145) mmol/L POC Potassium (3.3-5.0) mEq/L Potassium 4.3 (3.5-5.1) mmol/L POC Chloride (101-112) mEq/L Chloride 111 H (98-107) mmol/L Carbon Dioxide 26 (21-32) mmol/L POC Total CO2 (24-31) mEq/l Anion Gap 6.0 (3-11) POC Anion Gap (16-25) mmol/L POC BUN (7-18) mg/dl BUN 18 (7-18) mg/dl Creatinine 1.46 H (0.6-1.4) mg/dl POC Creatinine (0.6-1.3) mg/dl Est Cr Clr Drug Dosing 59.6 ml/min Est GFR ( Amer) 55.7 Est GFR (Non-Af Amer) 48.0 BUN/Creatinine Ratio 12.3 (10-20) Glucose 100 H (70-99) mg/dl POC Glucose (other) (70-99) mg/dl Calcium 9.0 (8.5-10.1) mg/dl POC Ioniz Calcium Markus (1.12-1.32) mmol/l Phosphorus 3.4 (2.5-4.9) mg/dl Magnesium 2.3 (1.8-2.4) mg/dl Total Bilirubin 1.0 (0.2-1) mg/dl AST 16 (15-37) U/L ALT 31 (12-78) U/L Alkaline Phosphatase 54 (45-117) U/L POC Troponin I (0-0.045) ng/ml Troponin I < 0.015 (0-0.045) ng/ml Total Protein 6.6 (6.4-8.2) gm/dl Albumin 3.8 (3.4-5.0) gm/dl Globulin 2.8 (2.5-4.0) gm/dl Albumin/Globulin Ratio 1.3 (0.9-2) TSH (0.300-4.500) uIu/ml Lyme Disease IgG Ab (Negative) Lyme Disease IgM Ab (Negative) Hepatitis C Ab Screen (Neg) 12/03/18 12/03/18 12/03/18 Range/Units 16:01 16:01 16:05 WBC (4.8-10.8) K/uL RBC (4.7-6.1) M/uL Hgb (14.0-18.0) g/dL POC Hgb 12.9 L (14.0-18.0) g/dl Hct (42-52) % POC Hct 38 L (42-52) % MCV (80-100) fL MCH (25-34) pg MCHC (32-36) g/dL RDW Std Deviation (36.4-46.3) fL RDW Coeff of David (11.5-14.5) % Plt Count (130-400) K/uL MPV (7.4-10.4) fL Immature Gran % (Auto) % Neut % (Auto) % Lymph % (Auto) % Bennett % (Auto) % Eos % (Auto) % Baso % (Auto) % Immature Gran # (Auto) (0.00-0.02) K/uL Neut # (Auto) (1.4-6.5) K/uL Lymph # (Auto) (1.2-3.4) K/uL Bennett # (Auto) (0.11-0.59) K/uL Eos # (Auto) (0-0.5) K/uL Baso # (Auto) (0-0.2) K/uL PT (9.0-12.0) Seconds INR (0.9-1.1) APTT (21.0-31.0) Seconds PTT Ratio VBG pH (7.36-7.41) VBG pCO2 (38-50) mmHg VBG pO2 mmHg VBG HCO3 mmol/L VBG O2 Saturation % VBG Base Excess mEq/L Barometric Pressure mm/Hg POC Sodium 142 (135-144) mEq/L Sodium (136-145) mmol/L POC Potassium 4.3 (3.3-5.0) mEq/L Potassium (3.5-5.1) mmol/L POC Chloride 105 (101-112) mEq/L Chloride (98-107) mmol/L Carbon Dioxide (21-32) mmol/L POC Total CO2 24 (24-31) mEq/l Anion Gap (3-11) POC Anion Gap 18.0 (16-25) mmol/L POC BUN 18 (7-18) mg/dl BUN (7-18) mg/dl Creatinine (0.6-1.4) mg/dl POC Creatinine 1.4 H (0.6-1.3) mg/dl Est Cr Clr Drug Dosing ml/min Est GFR ( Amer) Est GFR (Non-Af Amer) BUN/Creatinine Ratio (10-20) Glucose (70-99) mg/dl POC Glucose (other) 103 H (70-99) mg/dl Calcium (8.5-10.1) mg/dl POC Ioniz Calcium Markus 1.16 (1.12-1.32) mmol/l Phosphorus (2.5-4.9) mg/dl Magnesium (1.8-2.4) mg/dl Total Bilirubin (0.2-1) mg/dl AST (15-37) U/L ALT (12-78) U/L Alkaline Phosphatase (45-117) U/L POC Troponin I (0-0.045) ng/ml Troponin I (0-0.045) ng/ml Total Protein (6.4-8.2) gm/dl Albumin (3.4-5.0) gm/dl Globulin (2.5-4.0) gm/dl Albumin/Globulin Ratio (0.9-2) TSH (0.300-4.500) uIu/ml Lyme Disease IgG Ab Negative (Negative) Lyme Disease IgM Ab Negative (Negative) Hepatitis C Ab Screen Neg (Neg) 12/03/18 12/03/18 12/03/18 Range/Units 16:05 16:29 16:29 WBC (4.8-10.8) K/uL RBC (4.7-6.1) M/uL Hgb (14.0-18.0) g/dL POC Hgb (14.0-18.0) g/dl Hct (42-52) % POC Hct (42-52) % MCV (80-100) fL MCH (25-34) pg MCHC (32-36) g/dL RDW Std Deviation (36.4-46.3) fL RDW Coeff of David (11.5-14.5) % Plt Count (130-400) K/uL MPV (7.4-10.4) fL Immature Gran % (Auto) % Neut % (Auto) % Lymph % (Auto) % Bennett % (Auto) % Eos % (Auto) % Baso % (Auto) % Immature Gran # (Auto) (0.00-0.02) K/uL Neut # (Auto) (1.4-6.5) K/uL Lymph # (Auto) (1.2-3.4) K/uL Bennett # (Auto) (0.11-0.59) K/uL Eos # (Auto) (0-0.5) K/uL Baso # (Auto) (0-0.2) K/uL PT (9.0-12.0) Seconds INR (0.9-1.1) APTT (21.0-31.0) Seconds PTT Ratio VBG pH 7.44 H (7.36-7.41) VBG pCO2 37 L (38-50) mmHg VBG pO2 28 mmHg VBG HCO3 24 mmol/L VBG O2 Saturation < 60.0 % VBG Base Excess 0.3 mEq/L Barometric Pressure 733.7 mm/Hg POC Sodium (135-144) mEq/L Sodium (136-145) mmol/L POC Potassium (3.3-5.0) mEq/L Potassium (3.5-5.1) mmol/L POC Chloride (101-112) mEq/L Chloride (98-107) mmol/L Carbon Dioxide (21-32) mmol/L POC Total CO2 (24-31) mEq/l Anion Gap (3-11) POC Anion Gap (16-25) mmol/L POC BUN (7-18) mg/dl BUN (7-18) mg/dl Creatinine (0.6-1.4) mg/dl POC Creatinine (0.6-1.3) mg/dl Est Cr Clr Drug Dosing ml/min Est GFR ( Amer) Est GFR (Non-Af Amer) BUN/Creatinine Ratio (10-20) Glucose (70-99) mg/dl POC Glucose (other) (70-99) mg/dl Calcium (8.5-10.1) mg/dl POC Ioniz Calcium Markus (1.12-1.32) mmol/l Phosphorus (2.5-4.9) mg/dl Magnesium (1.8-2.4) mg/dl Total Bilirubin (0.2-1) mg/dl AST (15-37) U/L ALT (12-78) U/L Alkaline Phosphatase (45-117) U/L POC Troponin I < 0.03 (0-0.045) ng/ml Troponin I (0-0.045) ng/ml Total Protein (6.4-8.2) gm/dl Albumin (3.4-5.0) gm/dl Globulin (2.5-4.0) gm/dl Albumin/Globulin Ratio (0.9-2) TSH 0.794 (0.300-4.500) uIu/ml Lyme Disease IgG Ab (Negative) Lyme Disease IgM Ab (Negative) Hepatitis C Ab Screen (Neg) Imaging Data Radiologist's Impression: Radiology results as stated below per my review and the radiologist's interpretation: XR chest 1V portable CLINICAL HISTORY: Dyspnea COMPARISON STUDY: 11/08/2010 FINDINGS: The heart is mildly enlarged. There is radiographic evidence of emphys graham. There is slight elevation of the interstitium raising the possibility of mild pulmonary vascular congestion.[ There is no focal pulmonary consolidation. There are no pleural effusions. IMPRESSION: Cardiomegaly and suspected mild pulmonary vascular congestion. No evidence of focal pulmonary consolidation. Electronically signed by: Quintin Lawrence M.D. 12/03/2018 4:18 PM ECG Data Attestation: I personally reviewed and interpreted this ECG as follows: Indication: SOB/dyspnea Rate (beats per minute): 39 Rhythm: other (second degree heart block) Findings: + other (questionable block, appear to be occasional P waves, occasionally conducting QRS complexes, normal QRS duration) and + prolonged QT Additional Comments: REPEAT EK to 1 heart block, rate of 39, borderline QRS widening, normal axis, TWI anteriorly. Blood Pressure Blood Pressure Findings: Elevated blood pressure Blood Pressure Disposition: further management by hospitalist DAMIEN Brooks The patient is a 68 year old male with a past medical history of HLD, diabetes, and colon cancer who presents to the Emergency Room with complaints of a worsening shortness of breath that began several weeks ago. Differential diagnoses includes but is not limited to: pneumonia, bronchitis, COPD/Asthma exacerbation, pneumothorax, pulmonary embolism, congestive heart f ailure, and acute coronary syndrome. Patient was seen and evaluated the bedside. The patient had been complaining of shortness of breath which is been ongoing for some time but acutely worse. The patient states he does not have chest pains but only shortness of breath. No prior history of DVT or PE. The patient had been referred after being seen by his PCP with concern for a possible arrhythmia. Patient does appear to be in a 2-1 block. The patient has stable blood pressure and does not require pacing at this time. The patient was given a dose of atropine which did improve his heart rates but only transiently. The patient did a blood work completed which is fairly unremarkable. I did discuss case with the on-call behavior interventionist who stated that he would speak with the on-call gauger delivery about possible pacemaker placement tomorrow. The patient was made n.p.o. at midnight. I did speak with the on-call hospitalist who agreed to further evaluate treat the patient. Patient was admitted to the medicine service. Impression & Plan Second degree heart block, Symptomatic bradycardia, Shortness of breath Critical Care Time I have personally spent 55 minutes of critical care time in the direct management of this patient. This includes bedside care, interpretation of diag nostic studies and testing, discussion with consultants, patient, and family members, and other required patient management activities. These 55 minutes is in excess of all separately billable procedures. Critical Care Time: Yes Total Critical Care Time: 55 Discharge Plan Visit Data *Final* Discharge Date/Time: 12/03/18 18:50 Chief Complaint: Arrhythmia/Palpitations Stated Complaint: IRREGULAR HEARTBEAT ED Provider: Joseph Vinson Discharge Problem: Second degree heart block, Symptomatic bradycardia, Shortness of breath Patient Disposition: Admitted As Inpatient Discharge Instructions Interventions: ED Discharge Assessment Last Done: 12/03/18 18:50 The scribe's documentation has been prepared under my direction and personally reviewed by me in its entirety. I confirm that the note above accurately reflects all work, treatment, procedures, and medical decision making performed by me.
[2018-12-04] MEDS: SODIUM CHLORIDE 0.9% 1000ML 1,000 ML IV SCH (06:19)
[2018-12-04 07:00] LABS: Hematocrit (blood only) 37.4 % (42-52); Hemoglobin 12.8 g/dL (14.0-18.0); Mean Corpuscular Hgb Conc 34.2 g/dL (32-36); Mean Corpuscular Volume 90.6 fL (80-100); Mean Platelet Volume 10.7 fL (7.4-10.4); Platelet Count 189 K/uL (130-400); RDW Coefficient of Variation 13.3 % (11.5-14.5); RDW Standard Deviation 44.1 fL (36.4-46.3); Red Blood Count 4.13 M/uL (4.7-6.1); White Blood Count 6.95 K/uL (4.8-10.8)
[2018-12-04] MEDS ORDERED: BACITRACIN OINT 0.9 GM PKT ONE (07:15)
[2018-12-04] MEDS ORDERED: fentaNYL citrate 100 MCG/2 ML VIAL ONE (07:15)
[2018-12-04] MEDS ORDERED: BACITRACIN INJ 50,000 UNIT VIAL ONE (07:15)
[2018-12-04] MEDS ORDERED: LIDOCAINE HCL 1% 20 ML VIAL ONE (07:15)
[2018-12-04] MEDS ORDERED: BUPIVACAINE 0.25% 30 ML VIAL ONE (07:15)
[2018-12-04] MEDS ORDERED: CEFAZOLIN 250 MG/ML 1 GM VIAL ONE (07:15)
[2018-12-04] MEDS ORDERED: MIDAZOLAM HCL 5 MG/ML 1 ML VIAL ONE (07:15)
[2018-12-04 07:17] LABS: BUN Creatinine Ratio 13.5 (10-20); Calcium 8.3 mg/dl (8.5-10.1); Creatinine Clr Calc Pharmacy 64.3 ml/min; Est GFR (African American) 62.9; Est GFR (Non-African American) 54.3; Potassium 4.3 mmol/L (3.5-5.1)
--- NOTE | 2018-12-04 08:02 | Pre Anesthesia Assessment ---
Date of Service December 04, 2018 Pre Sedation Assessment Vital Signs Temp Pulse Pulse Pulse Resp BP BP 12/04/18 03:01 36.7 C 36 L 16 169/72 H 12/03/18 23:21 36.7 C 41 L 22 170/69 H 12/03/18 21:45 38 L 166/68 H 12/03/18 20:00 37 L 12/03/18 19:00 36.6 C 40 L 20 161/63 H 12/03/18 18:40 22 12/03/18 18:32 21 178/77 H 12/03/18 18:30 20 12/03/18 18:20 37 L 27 H 12/03/18 18:16 35 L 22 177/69 H 12/03/18 18:10 39 L 15 12/03/18 18:01 34 L 14 169/87 H 12/03/18 18:00 34 L 21 12/03/18 17:50 39 L 16 12/03/18 17:46 36 L 18 181/73 H 12/03/18 17:40 20 12/03/18 17:31 37 L 20 174/70 H 12/03/18 17:30 37 L 17 12/03/18 17:20 38 L 15 12/03/18 17:16 36 L 19 157/71 H 12/03/18 17:10 38 L 21 12/03/18 17:01 36 L 21 161/72 H 12/03/18 17:00 36 L 21 12/03/18 16:50 41 L 21 12/03/18 16:45 43 L 18 151/69 H 12/03/18 16:40 38 L 18 12/03/18 16:34 41 L 19 157/67 H 12/03/18 16:30 41 L 17 12/03/18 16:20 41 L 20 12/03/18 16:16 41 L 15 187/71 H 12/03/18 16:10 53 L 19 12/03/18 16:05 38 L 17 179/69 H 12/03/18 16:03 12/03/18 16:02 12/03/18 16:00 37 L 15 12/03/18 15:49 36.7 C 37 L 17 194/73 H Pulse Ox 12/04/18 03:01 93 12/03/18 23:21 90 12/03/18 21:45 95 12/03/18 20:00 12/03/18 19:00 98 12/03/18 18:40 97 12/03/18 18:32 95 12/03/18 18:30 96 12/03/18 18:20 96 12/03/18 18:16 95 12/03/18 18:10 12/03/18 18:01 94 12/03/18 18:00 71 L 12/03/18 17:50 12/03/18 17:46 98 12/03/18 17:40 93 12/03/18 17:31 12/03/18 17:30 12/03/18 17:20 97 12/03/18 17:16 96 12/03/18 17:10 96 12/03/18 17:01 90 12/03/18 17:00 94 12/03/18 16:50 95 12/03/18 16:45 12/03/18 16:40 95 12/03/18 16:34 95 12/03/18 16:30 93 12/03/18 16:20 97 12/03/18 16:16 95 12/03/18 16:10 95 12/03/18 16:05 97 12/03/18 16:03 95 12/03/18 16:02 95 12/03/18 16:00 12/03/18 15:49 97 Cardiovascular + regular rate and + bradycardic Respiratory + respiratory effort normal Pre-Sedation Airway Assessment Smoking Status: Unknown if ever smoked Hx Sleep Apnea: No Hx Difficult Intubation: No Short, Thick Neck: No Thyromental Distance: > or= 3.5 Finger Breadths Oral Cavity: + WNL Mallampati Class: III ASA: ASA3 Procedure Planning Contraindications for Sedation: none Current Medications Reviewed: Yes Notes The planned sedation has been discussed with the patient. Informed Consent was obtained. I have identified the patient, determined the appropriateness of sedation and have assessed the patient immediately prior to the procedure. All medicine(s) and interventions are by my order.
[2018-12-04] MEDS ORDERED: CEFAZOLIN 2000MG 2,000 MG/15 ML SYR IV ONE (08:03)
[2018-12-04] MEDS ORDERED: ACETAMINOPHEN 325 MG TAB PO PRN (08:56)
[2018-12-04] MEDS ORDERED: OXYCODONE HCL IR 5 MG TAB (IMMEDIATE RELEASE) PO PRN (08:56)
--- NOTE | 2018-12-04 08:56 | Procedure Note ---
Procedure Note Date of Service December 04, 2018 Note Procedure performed: Implantation of dual-chamber permanent pacemaker Staff pearl maker: Boni Joyce MD Indication: The patient is a 68-year-old gentleman who presented with symptoms of exercise intolerance and bradycardia associated with second-degree heart block. Based on his symptoms and conduction disease felt to be a good candidate for permanent pacing due to symptomatic nonreversible AV node dysfunction. A dual-chamber device was selected he is currently in sinus rhythm and wished to maintain AV synchrony. Procedure in detail: The patient was informed of the risks benefits and alternatives to the intended procedure and she wished to proceed. He was taken to the electrophysiology suite in a fasting state. A preoperative antibiotic had been administered. The patient was monitored electrocardiographically throughout today's procedure and conscious sedation was administered per protocol. The left upper pectoral area is prepped and draped in usual sterile fashion. This area was anesthetized using subcutaneous administration of a xylocaine solution. An incision was made at this site and carried down to the prepectoralis fascia using sharp dissection. Electrocautery was also employed for dissection as well as for hemostasis. A device pocket was fashioned tissues above the pectoralis muscle. Subsequent to this maneuver the left axillary vein was accessed using modified Seldinger technique. Sheaths were placed over guidewires at this site and used to facilitate passage of the pacing leads to the respective chambers under fluoroscopic guidance. This included right atrial and right ventricular leads. Adequate sensing and threshold parameters were obtained prior to Active fixation of the leads to the endocardial surface. The proximal portion leads were then sutured the prepectoral fascia using nonabsorbable suture. The device pocket was irrigated with antibiotic solution. The leads were then attached to the device. The device and leads were then placed in the pocket and pocket was closed in 3 layers of absorbable suture. Steri-Strips and sterile dressing were applied. The device was tested noninvasively prior to conclusion the procedure. The patient tolerated procedure well there no immediate complications. Equipment used: New pulse generator: Sh[employer]cher Med[employer]. Model number: [id number] serial number: [id number] Right atrial lead: Shade Matcher Medtronic. Model number: [id number] serial number [id number] Right ventricular lead: Shade Matcher Medtronic. Model number: [id number] serial number [id number] Measured data: Right atrial lead: P waves measured 2.3 mV. Pacing threshold 1 V at 0.4 ms with a pacing impedance of 489 ohms Right ventricular lead: No intrinsic R waves were measured. Pacing threshold was 0.6 V at 0.4 ms with a pacing impedance of 908 ohms Impression: Successful implantation of dual-chamber permanent pacemaker
--- NOTE | 2018-12-04 10:42 | Cardiology Consultation ---
Date of Consultation December 04, 2018 Assessment & Plan (1) Second degree heart block: Patient has second-degree heart block. There has been some concern regarding complete heart block on telemetry. The associated right bundle branch block suggest an element of infra Hisian disease. However, he was reported to have had some transient improved with atropine which is more consistent with AV edita disease. In any event, he is not on medications which would cause heart block or bradycardia. He did not have positive Lyme titers. He did not appear to have any proximate cause for the new conduction abnormalities that we are seeing. Most importantly, he is symptomatic from the associated bradycardia. I think a pacemaker is therefore warranted primarily for his symptoms in the setting of second-degree heart block. Interestingly, there has been some concern regarding cognitive decline. There can be some association with infiltrative diseases of the heart including amyloidosis that perhaps would cause both symptoms. At some point we could consider cardiac MRI for evaluation. History of Present Illness Reason for Consultation: Bradycardia, heart block Requesting Physician: Daniel Attending Physician: Ronni Olsen History of Present Illness The patient is a 68-year-old gentleman without a known history of cardiac disease who recently began to experience symptoms of exercise intolerance. In general he is an active individual was accustomed to moderate exercise. This generally involves an element of walking on a daily basis. Recently he has become more short of breath with ambulation. He also had some difficulty at ascending stairs recently. He states that he was severely out of breath and perhaps mildly dizzy after sending 4 flights of stairs. In the past this type of activity would not of cost symptoms. He has not report symptoms of chest discomfort associated with exercise. He has not had dizziness or lightheadedness at other times. Did not report presyncope or syncope. He has not generally been aware of his heartbeat but was discovered to have a low pulse in an outpatient setting on the day of admission. Based on the symptoms the patient was referred to [facility] Emergency room where he was discovered to have an element of heart block. Initial EKG suggested 2-1 heart block with right bundle branch block as well. Patient was administered atropine with reported improvement in heart rate. Turner milli, this appeared to be transient in nature. Allergies Allergy/AdvReac Type Severity Reaction Status Date / Time No Known Allergies Allergy Unknown ` Verified 12/03/18 16:13 Home Medications Home Medications Medication Instructions Recorded Confirmed Type aspirin 81 mg PO DAILY 12/03/18 12/03/18 History cholecalciferol (vitamin D3) 1,000 unit PO DAILY 12/03/18 12/03/18 History [Vitamin D3] cyanocobalamin (vitamin B-12) 1 tab PO DAILY 12/03/18 12/03/18 History [Vitamin B-12] ferrous sulfate [iron] 1 tab PO DAILY 12/03/18 12/03/18 History metformin 1,000 mg PO BID 12/03/18 12/03/18 History saw palmetto 1 tab PO DAILY 12/03/18 12/03/18 History simvastatin 80 mg PO DAILY 12/03/18 12/03/18 History hydrocodone-acetaminophen [[place]] 1 tab PO Q6H PRN #10 tab 12/05/18 Rx losartan 100 mg PO DAILY 30 Days #30 tab 12/05/18 Rx furosemide 20 mg PO QAM #2 tab 12/06/18 Rx nifedipine [Adalat CC] 30 mg PO QAM #30 tab 12/06/18 Rx potassium chloride 20 meq PO DAILY #2 tab 12/06/18 Rx Patient History Medical History Colon cancer (Resolved) Heart murmur Surgical History History of partial colectomy Social History Preferred Language: Yi Communication Ability: Effective In Service Education Teacher Required: No Beliefs That Will Affect Care: None marital status: Current Living Situation: Spouse Other Information That Helps Us Care for You: No Feels Safe at Home: Yes Safety Concerns: Feels Safe At This Time Smoking Status: Unknown if ever smoked Hx Alcohol Use: No Physical Exam Vital Signs (Past 24 Hours): Last Vital Signs Temp 36.7 C 12/04/18 03:01 Pulse 36 L 12/04/18 03:01 Resp 16 12/04/18 03:01 BP 169/72 H 12/04/18 03:01 Pulse Ox 93 12/04/18 03:01 Physical Exam: The patient is alert and oriented. Mood and affect appeared normal. He answered all questions appropriately. HEENT: Pupils are equal and reactive to light and accommodation. Extraocular movements are intact. The sclerae are anicteric. Neuro: Cranial nerves intact Neck: Patient's neck is supple. He has palpable carotid pulses bilaterally without bruits on auscultation. There is no evidence of jugular venous distention. The thyroid is not enlarged. Lungs: Clear to auscultation bilaterally. He has good air movement without use of accessory muscles. No rales wheezes or rhonchi. Cardiac: Heart demonstrates a regular rhythm. Bradycardic. Normal S1 and S2. No murmurs on examination. Pulses: The patient has palpable radial pulses bilaterally that are equal in intensity Extremities: There was no evidence of hypoperfusion. There is no cyanosis or clubbing. There is no edema. Skin: I did not appreciate any rashes on examination today. Results & Data Laboratory Results Abnormal Lab Results 12/03/18 12/03/18 12/03/18 16:01 16:01 16:01 WBC 6.29 RBC 4.40 L Hgb 13.3 L POC Hgb Hct 39.8 L POC Hct MCV 90.5 MCH 30.2 MCHC 33.4 RDW Std Deviation 43.7 RDW Coeff of David 13.3 Plt Count 208 MPV 10.8 H Immature Gran % (Auto) 0.3 Neut % (Auto) 69.2 Lymph % (Auto) 20.2 Pettis % (Auto) 8.4 Eos % (Auto) 1.4 Baso % (Auto) 0.5 Immature Gran # (Auto) 0.02 Neut # (Auto) 4.35 Lymph # (Auto) 1.27 Pettis # (Auto) 0.53 Eos # (Auto) 0.09 Baso # (Auto) 0.03 PT 10.5 INR 1.0 APTT 24.7 PTT Ratio 0.9 VBG pH VBG pCO2 VBG pO2 VBG HCO3 VBG O2 Saturation VBG Base Excess Barometric Pressure POC Sodium Sodium 142 POC Potassium Potassium 4.3 POC Chloride Chloride 111 H Carbon Dioxide 26 POC Total CO2 Anion Gap 6.0 POC Anion Gap POC BUN BUN 18 Creatinine 1.46 H POC Creatinine Est Cr Clr Drug Dosing 59.6 Est GFR ( Amer) 55.7 Est GFR (Non-Af Amer) 48.0 BUN/Creatinine Ratio 12.3 Glucose 100 H POC Glucose (other) Calcium 9.0 POC Ioniz Calcium Markus Phosphorus 3.4 Magnesium 2.3 Total Bilirubin 1.0 AST 16 ALT 31 Alkaline Phosphatase 54 POC Troponin I Troponin I < 0.015 Total Protein 6.6 Albumin 3.8 Globulin 2.8 Albumin/Globulin Ratio 1.3 TSH Lyme Disease IgG Ab Lyme Disease IgM Ab Hepatitis C Ab Screen 12/03/18 12/03/18 12/03/18 16:01 16:01 16:05 WBC RBC Hgb POC Hgb 12.9 L Hct POC Hct 38 L MCV MCH MCHC RDW Std Deviation RDW Coeff of David Plt Count MPV Immature Gran % (Auto) Neut % (Auto) Lymph % (Auto) Pettis % (Auto) Eos % (Auto) Baso % (Auto) Immature Gran # (Auto) Neut # (Auto) Lymph # (Auto) Pettis # (Auto) Eos # (Auto) Baso # (Auto) PT INR APTT PTT Ratio VBG pH VBG pCO2 VBG pO2 VBG HCO3 VBG O2 Saturation VBG Base Excess Barometric Pressure POC Sodium 142 Sodium POC Potassium 4.3 Potassium POC Chloride 105 Chloride Carbon Dioxide POC Total CO2 24 Anion Gap POC Anion Gap 18.0 POC BUN 18 BUN Creatinine POC Creatinine 1.4 H Est Cr Clr Drug Dosing Est GFR ( Amer) Est GFR (Non-Af Amer) BUN/Creatinine Ratio Glucose POC Glucose (other) 103 H Calcium POC Ioniz Calcium Markus 1.16 Phosphorus Magnesium Total Bilirubin AST ALT Alkaline Phosphatase POC Troponin I Troponin I Total Protein Albumin Globulin Albumin/Globulin Ratio TSH Lyme Disease IgG Ab Negative Lyme Disease IgM Ab Negative Hepatitis C Ab Screen Neg 12/03/18 12/03/18 12/03/18 16:05 16:29 16:29 WBC RBC Hgb POC Hgb Hct POC Hct MCV MCH MCHC RDW Std Deviation RDW Coeff of David Plt Count MPV Immature Gran % (Auto) Neut % (Auto) Lymph % (Auto) Pettis % (Auto) Eos % (Auto) Baso % (Auto) Immature Gran # (Auto) Neut # (Auto) Lymph # (Auto) Pettis # (Auto) Eos # (Auto) Baso # (Auto) PT INR APTT PTT Ratio VBG pH 7.44 H VBG pCO2 37 L VBG pO2 28 VBG HCO3 24 VBG O2 Saturation < 60.0 VBG Base Excess 0.3 Barometric Pressure 733.7 POC Sodium Sodium POC Potassium Potassium POC Chloride Chloride Carbon Dioxide POC Total CO2 Anion Gap POC Anion Gap POC BUN BUN Creatinine POC Creatinine Est Cr Clr Drug Dosing Est GFR ( Amer) Est GFR (Non-Af Amer) BUN/Creatinine Ratio Glucose POC Glucose (other) Calcium POC Ioniz Calcium Markus Phosphorus Magnesium Total Bilirubin AST ALT Alkaline Phosphatase POC Troponin I < 0.03 Troponin I Total Protein Albumin Globulin Albumin/Globulin Ratio TSH 0.794 Lyme Disease IgG Ab Lyme Disease IgM Ab Hepatitis C Ab Screen 12/04/18 12/04/18 06:15 06:15 WBC 6.95 RBC 4.13 L Hgb 12.8 L POC Hgb Hct 37.4 L POC Hct MCV 90.6 MCH 31.0 MCHC 34.2 RDW Std Deviation 44.1 RDW Coeff of David 13.3 Plt Count 189 MPV 10.7 H Immature Gran % (Auto) Neut % (Auto) Lymph % (Auto) Pettis % (Auto) Eos % (Auto) Baso % (Auto) Immature Gran # (Auto) Neut # (Auto) Lymph # (Auto) Pettis # (Auto) Eos # (Auto) Baso # (Auto) PT INR APTT PTT Ratio VBG pH VBG pCO2 VBG pO2 VBG HCO3 VBG O2 Saturation VBG Base Excess Barometric Pressure POC Sodium Sodium 144 POC Potassium Potassium 4.3 POC Chloride Chloride 112 H Carbon Dioxide 26 POC Total CO2 Anion Gap 6.0 POC Anion Gap POC BUN BUN 18 Creatinine 1.32 POC Creatinine Est Cr Clr Drug Dosing 64.3 Est GFR ( Amer) 62.9 Est GFR (Non-Af Amer) 54.3 BUN/Creatinine Ratio 13.5 Glucose 96 POC Glucose (other) Calcium 8.3 L POC Ioniz Calcium Markus Phosphorus Magnesium Total Bilirubin AST ALT Alkaline Phosphatase POC Troponin I Troponin I Total Protein Albumin Globulin Albumin/Globulin Ratio TSH Lyme Disease IgG Ab Lyme Disease IgM Ab Hepatitis C Ab Screen Diagnostic Findings Chest x-ray obtained at the time of admission revealed mild cardiomegaly without acute cardiopulmonary process Echocardiogram preliminary evaluation suggest preserved LV systolic function with some aortic valve disease. Moderate mitral regurgitation. ECG Additional Comments: EKG demonstrated normal sinus rhythm with 2-1 av conduction and right bundle branch block
[2018-12-04] MEDS ORDERED: FUROSEMIDE 40 MG/4 ML VIAL IV STA (14:20)
[2018-12-04] MEDS: ACETAMINOPHEN 325 MG TAB PO PRN ×2 (15:24→22:26)
[2018-12-04] MEDS: CEFAZOLIN 2000MG 2,000 MG/15 ML SYR IV SCH ×2 (16:47→23:54)
[2018-12-04] MEDS: LOSARTAN POTASSIUM 50 MG TAB PO SCH (17:31)
--- NOTE | 2018-12-04 20:33 | Hospitalist Progress Note ---
Date of Service December 04, 2018 Assessment & Plan (1) Second degree heart block: s/p permanent pacemaker insertion today by Dr. Joyce. Device functioning well. Keep on telemetry overnight. Present on Admission?: Yes (2) Acute respiratory distress: Likely 2nd to acute diastolic CHF. Fluids stopped. Lasix given. Repeat exam several hours following the lasix - O2 off, distress resolved, lungs more clear. Present on Admission?: No (3) HTN (hypertension): resume losartan and titrate if necessary. (4) Acute diastolic CHF (congestive heart failure): Echo c/w volume overload (IVC dilated). s/p lasix this afternoon with good response. Reassess in am. Control his HTN. Now that pacer is in place can likely use betablocker. Present on Admission?: No (5) DVT prophylaxis: ambulation. SCDs. hopefully home tomorrow. updated at bedside. Subjective During early afternoon rounds and upon entering his room the patient was visibly dyspneic. He stated he developed dyspnea sometime this am and steadily had worsened. He could not lay flat in bed. He had YUEN w/ walking to the toilet. No chest pain. Tele since his pacer insertion has shown paced rhythm. He denied any recent respiratory illness. Respiratory: + dyspnea and + dyspnea on exertion; no cough and no wheezing Cardiovascular: + orthopnea; no chest pain Gastrointestinal: no abdominal pain Physical Exam Vital Signs (Past 24 Hours): Last Vital Signs Temp 36.6 C 12/04/18 19:20 Pulse 70 12/04/18 19:20 Resp 19 12/04/18 19:20 BP 189/83 H 12/04/18 19:20 Pulse Ox 96 12/04/18 19:20 Constitutional: well developed, well nourished and + acute distress (visibly dyspneic); not ill appearing ENMT: external ear and nose normal, oropharynx normal Respiratory: + respiratory distress (tachypneic) Auscultation: + crackles (both bases) Cardiovascular: Rate/Rhythm: regular rate and regular rhythm Heart Sounds: normal S1, normal S2 and + murmur (1/6 LLSB) Vessels: + JVD, posterior tibial pulses present and dorsalis pedis pulses present Gastrointestinal (Abdomen): normal bowel sounds, soft, nontender, no hepatosplenomegaly Skin: dressings to left chest wall clean Psychiatric: A+Ox3, euthymic affect Results & Data Laboratory Results Laboratory Results - last 24 hr 12/03/18 12/04/18 12/04/18 16:01 06:15 06:15 WBC 6.95 RBC 4.13 L Hgb 12.8 L Hct 37.4 L MCV 90.6 MCH 31.0 MCHC 34.2 RDW Std Deviation 44.1 RDW Coeff of David 13.3 Plt Count 189 MPV 10.7 H Sodium 144 Potassium 4.3 Chloride 112 H Carbon Dioxide 26 Anion Gap 6.0 BUN 18 Creatinine 1.32 Est Cr Clr Drug Dosing 64.3 Est GFR ( Amer) 62.9 Est GFR (Non-Af Amer) 54.3 BUN/Creatinine Ratio 13.5 Glucose 96 Calcium 8.3 L Hepatitis C Ab Screen Neg (1) HTN (hypertension) Hypertension type: essential hypertension Qualified Code(s): I10 - Essential (primary) hypertension
[2018-12-04] MEDS ORDERED: METOPROLOL TARTRATE 1 MG/ML VIAL IV STA (21:52)
[2018-12-05] MEDS: ACETAMINOPHEN 325 MG TAB PO PRN (04:19)
[2018-12-05 07:21] LABS: Hemoglobin 12.8 g/dL (14.0-18.0); Mean Corpuscular Hgb Conc 34.6 g/dL (32-36); Mean Corpuscular Volume 87.9 fL (80-100); Platelet Count 189 K/uL (130-400); RDW Coefficient of Variation 13.2 % (11.5-14.5); RDW Standard Deviation 42.3 fL (36.4-46.3); Red Blood Count 4.21 M/uL (4.7-6.1); White Blood Count 5.78 K/uL (4.8-10.8)
[2018-12-05 07:42] LABS: BUN Creatinine Ratio 11.7 (10-20); Calcium 8.4 mg/dl (8.5-10.1); Creatinine Clr Calc Pharmacy 69.6 ml/min; Est GFR (African American) 69.2; Est GFR (Non-African American) 59.7; Potassium 3.8 mmol/L (3.5-5.1)
[2018-12-05] MEDS: LOSARTAN POTASSIUM 50 MG TAB PO SCH (07:56)
[2018-12-05] MEDS: CEFAZOLIN 2000MG 2,000 MG/15 ML SYR IV SCH (07:57)
[2018-12-05] MEDS ORDERED: LOSARTAN POTASSIUM 50 MG TAB PO ONE (09:45)
--- NOTE | 2018-12-05 10:14 | XRay Report ---
TWO VIEW CHEST CLINICAL HISTORY: Status post pacemaker implantation. FINDINGS: PA and lateral chest radiographs are compared to study dated 12/03/2018 and correlated with chest CT dated 12/15/2006. A 2-lead cardiac pacemaker has been placed and partially obscures the left upper chest. Leads project over the right atrial appendage and the right ventricle. The heart is enla rged and there is atherosclerotic calcification of the thoracic aorta. The pulmonary vasculature is n oncongested. Enlargement of the central pulmonary arteries suggests pulmonary artery hypertension. Em physema and chronic interstitial thickening are similar to previous. There are small pleural effusion s with bibasilar consolidation. There is no pneumothorax. The skeletal structures are osteopenic. The bony thorax appears intact. IMPRESSION: 1. A 2-lead cardiac pacemaker has been implanted as above. No pneumothorax is identified post procedu re. 2. Cardiomegaly and emphysema. There is no radiographic evidence of congestive failure. 3. Small pleural effusions are identified with bibasilar consolidation. Radiographic follow-up to res olution is recommended. Electronically signed by: Teja Lopez M.D. 12/05/2018 10:12 AM
--- NOTE | 2018-12-05 10:17 | Cardiology Progress Note ---
Date of Service December 05, 2018 Assessment & Plan (1) Second degree heart block: S/P implant of dual chamber pacemaker. No complication. OK for D/C from pacemaker standpoint. Will need to keep wound dry and steri-strip intact until f/u in our clinic next week. No lifting left arm above shoulder or behind neck for 6 weeks. (2) Shortness of breath: He had some dyspnea yesterday which seemed to respond to diuresis. His feels like he still has dyspnea. Normal LV function. X-ray did not demonstrate pulmonary edema. Perhaps a primary pulmonary process causing some continued dyspnea. he should be at less risk for pulmonary edema with preserved LV function and normal AV conduction/heart rate. (3) HTN (hypertension): Some higher BP here in the hospital. Perhaps increased dose of losartan woudl help. Subjective Feeling well this morning. Some ambulation around his room. Minimal pain at the implant site. Physical Exam Vital Signs (Past 24 Hours): Last Vital Signs Temp 36.7 C 12/05/18 07:27 Pulse 63 12/05/18 07:27 Resp 18 12/05/18 07:27 BP 174/77 H 12/05/18 07:27 Pulse Ox 95 12/05/18 07:27 Physical Exam: Wound without hematoma. No erythema. Minimal ecchymosis. No drainage Results & Data Diagnostic Findings Chest X-ray demonstrated good lead position. No PTX Interrogation reveals good lead function. (1) HTN (hypertension) Hypertension type: essential hypertension Qualified Code(s): I10 - Essential (primary) hypertension
[2018-12-05] MEDS ORDERED: FUROSEMIDE 20 MG TAB PO STA (12:02)
[2018-12-05] MEDS ORDERED: POTASSIUM CHLORIDE 20 MEQ TABCR PO STA (12:02)
[2018-12-05] MEDS ORDERED: MAGNESIUM OXIDE 400 MG TAB PO ONE (12:15)
[2018-12-05] MEDS ORDERED: NIFEdipine EXTENDED REL 30 MG TABCR PO STA (15:55)
--- NOTE | 2018-12-05 21:33 | Hospitalist Progress Note ---
Date of Service December 05, 2018 Assessment & Plan (1) Second degree heart block: POD #1 - s/p permanent pacemaker insertion by Dr. Joyce. Device functioning well. Tele with pacing overnight. Pacer incision site clean. CXR w/o pneumothorax. Doing well from cardiology standpoint. f/u Dr Joyce 2-3 weeks. Present on Admission?: Yes (2) Acute respiratory distress: Resolved. Was 2nd to acute diastolic CHF. (3) Acute diastolic CHF (congestive heart failure): Echo c/w volume overload (IVC dilated). Improved s/p IV lasix yesterday. Still c/o mild dyspnea - only w/ exertion. Will give lasix 20mg po x 1 this am. Exam essentially normal today. CXR stable as well. (4) HTN (hypertension): Asymptomatic from such. However, nearly all BPs high since admission. I increased the pt's losartan to 100mg this am. Despite such he remained hypertensive all day today. I then added nifedipine 30mg late this afternoon with minimal response. White coat HTN?? Office readings reviewed -- nearly all readings are >140. Observe overnight; hopefully home in am. (5) DVT prophylaxis: ambulation. SCDs. hopefully home in AM. updated at bedside. Subjective pt reports "a little" shortness of breath with activity but nothing at rest. no orthopnea. no PND. no chest pain. scant cough. BPs elevated most of overnight/this AM. cxr this am w/o pneumothorax from his pacer placement. Constitutional: no fever Respiratory: as per Subjective / HPI and + dyspnea on exertion Gastrointestinal: no abdominal pain Physical Exam Vital Signs (Past 24 Hours): Last Vital Signs Temp 37.3 C 12/05/18 19:11 Pulse 69 12/05/18 19:11 Resp 22 12/05/18 19:11 BP 174/84 H 12/05/18 19:11 Pulse Ox 93 12/05/18 19:11 Constitutional: well developed and well nourished; no acute distress and not ill appearing ENMT: external ear and nose normal, oropharynx normal Respiratory: normal respiratory effort, lungs clear to auscultation Cardiovascular: Rate/Rhythm: regular rate and regular rhythm Heart Sounds: normal S1, normal S2 and + murmur (1/6 LLSB) Vessels: posterior tibial pulses present and dorsalis pedis pulses present; no JVD Gastrointestinal (Abdomen): normal bowel sounds, soft, nontender, no hepatosplenomegaly Skin: pacer site left upper chest clean; steri strips in place Psychiatric: A+Ox3, euthymic affect Results & Data Laboratory Results Laboratory Results - last 24 hr 12/05/18 12/05/18 06:58 06:58 WBC 5.78 RBC 4.21 L Hgb 12.8 L Hct 37.0 L MCV 87.9 MCH 30.4 MCHC 34.6 RDW Std Deviation 42.3 RDW Coeff of David 13.2 Plt Count 189 MPV 10.0 Sodium 141 Potassium 3.8 Chloride 110 H Carbon Dioxide 23 Anion Gap 8.0 BUN 14 Creatinine 1.22 Est Cr Clr Drug Dosing 69.6 Est GFR ( Amer) 69.2 Est GFR (Non-Af Amer) 59.7 BUN/Creatinine Ratio 11.7 Glucose 91 Calcium 8.4 L (1) HTN (hypertension) Hypertension type: essential hypertension Qualified Code(s): I10 - Essential (primary) hypertension
[2018-12-06 06:08] LABS: Hematocrit (blood only) 40.7 % (42-52); Hemoglobin 14.1 g/dL (14.0-18.0); Mean Corpuscular Hgb Conc 34.6 g/dL (32-36); Mean Corpuscular Volume 88.7 fL (80-100); Mean Platelet Volume 9.9 fL (7.4-10.4); Platelet Count 195 K/uL (130-400); RDW Coefficient of Variation 13.2 % (11.5-14.5); RDW Standard Deviation 42.6 fL (36.4-46.3); Red Blood Count 4.59 M/uL (4.7-6.1); White Blood Count 6.67 K/uL (4.8-10.8)
[2018-12-06 06:26] LABS: BUN Creatinine Ratio 13.7 (10-20); Calcium 8.4 mg/dl (8.5-10.1); Creatinine Clr Calc Pharmacy 88.6 ml/min; Est GFR (African American) 93.6; Est GFR (Non-African American) 80.8; Magnesium 2.1 mg/dl (1.8-2.4)
[2018-12-06] MEDS ORDERED: FUROSEMIDE 20 MG TAB PO STA (07:13)
[2018-12-06] MEDS ORDERED: NIFEdipine EXTENDED REL 30 MG TABCR PO SCH (09:00)
[2018-12-06] MEDS ORDERED: LOSARTAN POTASSIUM 50 MG TAB PO SCH (09:00)
--- NOTE | 2018-12-06 10:32 | XRay Report ---
XR chest 2V routine CLINICAL HISTORY: dyspnea, recent pacer insertion dyspnea COMPARISON STUDY: 12/05/2018 FINDINGS: Improved exam compared to prior. Improved aeration both lung bases. Mild stable cardia emily ly. Bipolar cardiac pacemaker in good position. No evidence pneumothorax. Small posterior pleural eff usions unchanged. IMPRESSION: Improved exam with improved aeration both lung bases. Trace pleural effusion posterior c ostophrenic angles. Stable emphysematous change. The above report was generated using voice recognition software. It may contain grammatical, syntax or spelling errors. Electronically signed by: Tamir Gill M.D. 12/06/2018 10:30 AM
--- NOTE | 2018-12-16 09:57 | Discharge Summary ---
Date of Service date of admission - December 03, 2018 date of discharge - December 06, 2018 Admission HPI Per Admitting Provider 68yo male with h/o HTN & T2DM who presented with a few days of dyspnea on exertion. His also noted he had been having increasing memory issues over the previous few weeks. He was found to be in second-degree heart block type II upon presentation. Lyme's disease testing was normal, TSH was normal, and he had a negative troponin. While in the ER the patient did transiently respond to atropine. Fortunately, despite the low HR from the heart block, he had normal BPs (if anything the BPs were high). Principal Diagnosis 2nd degree heart block, Mobitz Type 2; s/p permanent pacemaker placement Discharge Exam Constitutional well developed and well nourished; no acute distress and not ill appearing ENMT external ear and nose normal, oropharynx normal Respiratory normal respiratory effort, lungs clear to auscultation Cardiovascular Rate/Rhythm: regular rate and regular rhythm Heart Sounds: normal S1, normal S2 and + murmur (1/6 LLSB) Vessels: posterior tibial pulses present and dorsalis pedis pulses present; no JVD Gastrointestinal (Abdomen) normal bowel sounds, soft, nontender, no hepatosplenomegaly Skin upper chest, pacemaker site - clean/dry/intact Psychiatric A+Ox3, euthymic affect Discharge Data Allergies Allergy/AdvReac Type Severity Reaction Status Date / Time No Known Allergies Allergy Unknown ` Verified 12/03/18 16:13 Consultations cardiology - Boni Joyce MD Procedures Performed Operation Date: 12/04/18 Dual-Chamber Permanent Pacemaker Placement - Boni Joyce MD echocardiogram - * EF 55-60% * aortic valve sclerosis but no aortic stenosis * mild pulmonary HTN * dilated IVC Hospital Course (1) Second degree heart block: The patient underwent permanent pacemaker insertion by Dr. Boni Joyce without procedural complication. The device was functioning well prior to discharge. Telemetry demonstrated frequent pacing. Chest x-ray did not show a post-procedural pneumothorax. He was given post-pacemaker implantation instructions including restrictions of the left arm. He will follow-up with Dr Joyce in 2-3 weeks post-discharge for pacer check. (2) Acute respiratory distress: The patient developed this several hours following his pacemaker insertion. He was found to be in acute diastolic CHF. The acute diastolic CHF was likely due to IV fluid administration in the setting of transient cardiac dysfunction from his 2nd degree AV block. He responded very rapidly to IV diuresis with weaning of his oxygen to off within hours of the first dose of IV lasix. He received additional lasix during the remainder of his stay and will complete a few more days of low-dose oral lasix after discharge. At time of discharge the patient appeared relatively euvolemic. o2 sats with walking were normal as well. (3) Acute diastolic CHF (congestive heart failure): Exam and Echo c/w volume overload (IVC dilated). Improved s/p IV and PO lasix. Chest x-ray on day of discharge was free of pulmonary edema, pneumothorax, or infiltrates. He did have emphysematous changes on his x-rays. (4) HTN (hypertension): The patient had significant HTN his entire stay even when he was in heart block. He was asymptomatic from such. His losartan was increased to 100mg daily. Despite this he remained hypertensive and nifedipine xr 30mg daily was also added. His BPs finally improved with these changes/additions. The outpatient EMR was reviewed. Office BP readings were nearly all high with systolics >140. Question if he has "white-coat HTN." He was advised to check home BPs daily and report these to his PCP and Dr. Trini douglas (5) Memory impairment: This will need additional outpatient work-up. Total Time Total Time Spent Total Time Spent (In Minutes): 45 Total Time Includes: Examination of the Patient, Discharge Planning and Medication Reconciliation Discharge Plan Discharge Items Patient Disposition: Home - Self-Care Reason For Visit: MOBITZ Type 2 HEART BLOCK Discharge Diagnosis: Heart block with placement of permanent pacemaker Discharge Goals: Diagnostic testing, Improve disease control and Therapeutic intervention Activity: Per 'Additional Instructions' section Lifting: No more than 10 pounds Lifting Comment: no more than 10 pounds with the left arm Bathing Comment: sponge bath or showers are OK but KEEP THE PACEMAKER SITE CLEAN/DRY/COVERED Non-emergency contact: Primary Care Provider and Supervisor Sewing Room Call non-emergency contact if: you have any medication questions, your pain is not controlled, your temperature is above 100.5, your wound has increased redness, your wound has increased drainage and your wound pain has increased Follow-up/Referrals: Manuel Menjivar MD [Primary Care Provider] - (SEE DR MENJIVAR WITHIN 1 WEEK) Harsha Joyce MD [Physician] - (SEE DR JOYCE, [facility], WITHIN 2-3 WEEKS) Diet: Carb Consistent or DM2 Addtl Provider Instructions: You were admitted due to heart block, an electrical problem of the heart that requires placement of a pacemaker. You underwent pacemaker placement by Dr. Joyce. Following the procedure you developed fluid retention in the lungs that responded rapidly to use of lasix (diuretic). Your echocardiogram showed normal heart function. Additionally you have uncontrolled high blood pressure from the moment that you arrived. We increased your losartan and added a second blood pressure medication. Your blood pressure on the morning of discharge was about 150 systolic. Your repeat chest x-ray on the day of discharge showed near-r esolution of all of the fluid. ACTIVITY RECOMMENDATIONS following your pacemaker insertion: * Do not raise your left arm over the level of the shoulder / head for 2 weeks. SPECIAL CARE INSTRUCTIONS: * If bleeding occurs, apply direct pressure to area for 5 minutes. * Call your doctor if you have severe pain, fever, drainage or bleeding at site. * Keep dressing on and dry for 48 hours then remove. * Keep any scheduled doctor's appointment. * Implant Card - hand held device with website information given. SKIN IRRITATION: * You may experience some redness and/or swelling in the area where radiation was administered. If any skin irritation occurs, please contact your family physician. Additional instructions - 1. please INCREASE your losartan to 100mg once daily for your blood pressure. Start on 12/07/18. New prescription sent to [facility]. 2. for any pain/discomfort may take hydrocodone-acetaminophen -- 1 tablet every 6 hours as needed for pain. This is narcotic pain-killer. These medications can make you sleepy. Thus, do not drive while taking this medication and do not drink alcohol. This medication may also cause constipation. Thus, if you take the pain killer, you may need a stool softener/laxative. 3. Please add nifedipine xr 30mg once daily for blood pressure control. Start this on 12/07/18. This medication can cause fluid retention in your ankles (known side effect) and occasionally constipation. 4. Take furosemide water pill for 2 days only. Take the AM of 12/07 and 16 only. Take a potassium supplement with it. 5. Follow-up -- see separate section. 6. Return to [facility] if -- * you have fevers over 100.5 degrees * you have redness, swelling, or foul-smelling drainage from your pacemaker site * you have worsening pain over the pacemaker site * you have worsening shortness of breath * any other concerns Prescriptions: New hydrocodone-acetaminophen [[place]] 5-325 mg tablet 1 tab PO Q6H PRN (Reason: pain) Qty: 10 RF: 0 losartan 100 mg tablet 100 mg PO DAILY 30 Days Qty: 30 RF: 5 nifedipine [Adalat CC] 30 mg Tablet Extended Release 30 mg PO QAM Qty: 30 RF: 5 furosemide 20 mg tablet 20 mg PO QAM Qty: 2 RF: 0 potassium chloride 20 mEq tablet extended release 20 meq PO DAILY Qty: 2 RF: 0 Continued simvastatin 80 mg tablet 80 mg PO DAILY RF: 0 aspirin 81 mg Tablet,Delayed Release (Dr/Ec) 81 mg PO DAILY RF: 0 saw palmetto 160 mg Capsule 1 tab PO DAILY RF: 0 metformin 1,000 mg tablet 1,000 mg PO BID RF: 0 cholecalciferol (vitamin D3) [Vitamin D3] 1,000 unit Capsule 1,000 unit PO DAILY RF: 0 cyanocobalamin (vitamin B-12) [Vitamin B-12] 500 mcg Tablet 1 tab PO DAILY RF: 0 ferrous sulfate [iron] 325 mg (65 mg iron) Tablet 1 tab PO DAILY RF: 0 Stand-Alone Forms: [facility] Discharge Orders: Discharge Order (Routine); Ordered 12/06/18 Ordered By: Ronni Olsen Admission Data Admit Date/Time: 12/03/18 17:42 Attending Provider: Ronni Olsen Admit Provider: Alli Sanchez Primary Care Provider: Manuel Menjivar Other Providers: Alli Sanchez ; Gray Corea Service: Telemetry Other Interventions: Discharge Summary Assessment (RN) Last Done: 12/06/18 11:28 DC Date/Time DO NOT enter until pt leaves facility: 12/06/18 12:43
== END 2018-12-06 12:43 | disposition home or self-care (01) | DRG 242 ==
LOC: ED 15:44 → 2E 17:42 → SUATTDRO 17:42 → 2E 18:50
DX: I44.1 Atrioventricular block, second degree; I11.0 Hypertensive heart disease with heart failure; Z85.038 Personal history of other malignant neoplasm of large intestine; Z79.84 Long term (current) use of oral hypoglycemic drugs; R01.1 Cardiac murmur, unspecified; I50.31 Acute diastolic (congestive) heart failure; E78.5 Hyperlipidemia, unspecified; R06.03 Acute respiratory distress; Z90.49 Acquired absence of other specified parts of digestive tract; N52.9 Male erectile dysfunction, unspecified; Z79.82 Long term (current) use of aspirin; E11.9 Type 2 diabetes mellitus without complications